=== PATIENT | female | born 1950 | race Caucasian/White ===

== ENCOUNTER → 2016-10-01 | Day surgery (SDC) | payer OTHER ==
[2016-09-17 10:01] VITALS: Ht 160 cm; Wt 75.0 kg
[~2016-10-01] VITALS: Ht 160 cm; Wt 75.0 kg
[~2016-10-01] MED LIST: 500ML BSS 0.3ML EPI 1:1000PF IRRIG ONE; ACETAMINOPHEN 325 MG TAB PO PRN; ALBUAER2 INH; ALPR-411 PO; AMVISC PLUS 0.8ML SYRINGE INT OCU ONE; ATROPINE SULFATE 0.1 MG/ML 5ML SYR IV PRN; BROM0.07 OPL; BSS FLUSH ONE; EpHEDrine SULFATE INJ 50 MG/ML AMP IV PRN; EpINEphrine INJ 1MG/ML AMP 1 MG/ML AMP ONE; FLVHFA220 INH; LACTATED RINGER'S 1000ML 500 ML IV SCH; LIDOCAINE 3.5% OPH GEL PER APPLICATION CHARGE ONE; LIDOCAINE HCL 1% MPF 2 ML VIAL ONE; MIDAZOLAM HCL 1 MG/ML 2ML VIAL ONE; MONT1TAB3 PO; MULT-506 PO; OCUCOAT 1 ML SOLN IO ONE; POLY335019 PO; POVIDONE-IODINE OP SOLN 30 ML BTL ONE; PRED1SUS3 OPL; PROPARACAINE 0.5% OP SOLN PER DROP CHARGE OPL SCH; TOBRAMYCIN/DEXAMETHASONE OPH OINT PER APPLN CHARGE ONE
[2016-10-01] MEDS: PHENYLEPHRINE HCL 2.5% OP SOLN PER DROP CHARGE OPL SCH ×2 (09:16→09:21)
[2016-10-01] MEDS: TROPICAMIDE 1% OP SOLN PER DROP CHARGE OPL SCH ×2 (09:17→09:22)
[2016-10-01] MEDS: CYCLOPENTOLATE HCL 1% OP SOLN PER DROP CHARGE OPL SCH ×2 (09:18→09:23)
[2016-10-01] MEDS: KETOROLAC 0.5% OP SOLN PER DROP CHARGE OPL SCH ×2 (09:19→09:24)
[2016-10-01] MEDS: GATIFLOXACIN OP SOLN PER DROP CHARGE OPL SCH ×2 (09:20→09:30)
--- NOTE | 2016-10-01 09:21 | History & Physical Bridge - [place] ---
H&P Re-Evaluation Bridge Note: I have examined the patient, reviewed the History & Physical and in the interval since the performance of the History & Physical I have noted the following changes of clinical significance: No changes noted
--- NOTE | 2016-10-01 10:06 | Discharge Instructions-SurgCtr ---
Discharge Instructions Visit Reason for Visit: Cataract Left Eye Discharge Discharge Diagnosis / Problem: cataract Discharge Goals Goal(s): Improve function Activity Recommendations Activity Limitations: per Instructions/Follow-up section Anesthesia . Post Anesthesia Instructions: If you have had General Anesthesia or IV Sedation: * Do not drive today. * Resume driving when surgeon permits. * Do not make important decisions or sign legal documents today. * Call surgeon for: 1. Temperature elevations greater than 101 degrees F. 2. Uncontrollable pain. 3. Excessive bleeding. 4. Persistent nausea and vomiting. 5. Medication intolerance (nausea, vomiting or rash). * For nausea and vomiting use only clear liquids such as: tea, soda, bouillon until nausea subsides, then gradually increase diet as tolerated. * If you have any concerns or questions, call your surgeon's office. If physician is unavailable and it is an emergency, call 911 or go to the nearest emergency room. . Instructions / Follow-Up Instructions / Follow-Up ACTIVITY RECOMMENDATIONS: * No strenuous lifting, jogging or running for 4 days * No swimming or yard work for 1 week. * Limited bending is permitted, such as putting on shoes. RETURN TO SCHOOL/WORK: No work until seen by physician in office. MEDICATIONS: Resume previous medications unless instructed otherwise by your surgeon. This includes eye drops for glaucoma. Zymaxid/Gatifloxacin (lin cap) - one drop every 2 hours until bedtime Nevanac/Ilevro/Prolensa/Ketorolac (solo cap) - one drop every 4 hours until bedtime Prednisolone (white/pink cap, SHAKE WELL) - one drop every 2 hours until bedtime Starting tomorrow - all 3 drops every 4 hours until seen in the office Optive drops - as needed for discomfort SPECIAL CARE INSTRUCTIONS: * Wear eyeshield when sleeping, for four nights. * You may wear your own glasses or sunglasses while awake. * You may read or watch TV * You may shower and wash your face, but be gentle around the eye and pat dry. * Blurry vision and mild irritation are normal. * Call office if pain is more severe or vision becomes dark at . FOLLOW UP VISIT: Follow-up with Dr Capps tomorrow. Diet Recommendations Home Diet: resume previous diet Procedures Procedures Performed: Left Cataract Phacoemulsification With Intraocular Lens Implant Pending Studies Studies pending at discharge: no Medical Emergencies . Who to Call and When: Medical Emergencies: If at any time you feel your situation is an emergency, please call 911 immediately. . Non-Emergent Contact Non-Emergency issues call your: Neon Molder . . "Provider Documentation" section prepared by Jann Capps.
--- NOTE | 2016-10-01 10:06 | [facility] Operative Report ---
Operative Report 1. PREOPERATIVE DIAGNOSIS: Cataract of the left eye. 2. POSTOPERATIVE DIAGNOSIS: Same. 3. PROCEDURE: Phacoemulsification with intraocular lens implantation of the left eye. SURGEON: Dr. Jann Capps. ANESTHESIA: Topical Lidocaine gel, 1% Non- Preserved intracameral Lidocaine, and monitored intravenous sedation. INDICATIONS FOR THE PROCEDURE: The patient is a 66 - year-old female with a history of cataract of the left eye causing significant visual impairment. The details of the proposed procedure were explained to the patient who asked appropriate questions and following discussion of all risks, benefits and alternatives agreed to have the procedure done. 4. OPERATION AND FINDINGS: DESCRIPTION OF PROCEDURE: After informed consent was obtained, the patient was brought to the Operating Room at the [facility]. The patient was placed in a supine position and then the left eye was prepped and draped in the usual sterile fashion for intraocular surgery. A drop of topical Lidocaine gel was placed in the operative eye. A wire lid speculum was then placed in the fornices. A corneal paracentesis was then created temporally. The Non-Preserved Lidocaine was then instilled into the anterior chamber. The anterior chamber was then pressurized with viscoelastic. A 2.0 mm clear corneal incision was then created temporally. A cystotome was inserted into the anterior chamber and used to create a tear in the anterior lens capsule. This capsular tear was then used to create a small flap and the flap was dragged in a counterclockwise direction in order to create a continuous curvilinear capsulorrhexis. Hydrodissection was accomplished with balanced salt solution. Phacoemulsification of the lens nucleus was then performed in a standard [id number] technique. The phaco time was 20 seconds with an average power of 10 %. The remaining cortical material was removed using irrigation aspiration. The capsular bag was then filled with viscoelastic. A Bausch & Lomb MI60L +16.0 diopters lens was then loaded into the injector and injected into the capsular bag. The remaining viscoelastic was removed with the irrigation aspiration handpiece. The wound was hydrated and then checked and found to be watertight. The intraocular pressure was checked and found to be adequate. The wire lid speculum was removed and the patient's face was cleaned and dried. TobraDex ointment was placed in the inferior fornix. The patient was discharged to the Recovery Room having tolerated the procedure well. There were no complications. The patient will be seen tomorrow in the office for follow-up. I attest to the content of the Intraoperative Record and any orders documented therein. Any exceptions are noted below.
[2016-10-01 10:10] VITALS: TEMP 36.8
--- NOTE | 2016-10-01 10:34 | Anesthesia Progress Nt - [facility] ---
Anesthesia Post Op Note Date & Time Oct 01, 2016 at 10:35 Vital Signs Pain Intensity: 0 Vital Signs Past 12 Hours Date Time Temp Pulse Resp B/P Pulse Ox O2 Delivery O2 Flow Rate FiO2 10/01/16 10:10 36.8 70 16 152/91 97 Room Air 10/01/16 09:04 36.4 69 16 177/100 96 Room Air Notes Mental Status: alert / awake / arousable, participated in evaluation Pt Amnestic to Procedure: Yes Nausea / Vomiting: adequately controlled Pain: adequately controlled Airway Patency, RR, SpO2: stable & adequate BP & HR: stable & adequate Hydration State: stable & adequate Anesthetic Complications: no major complications apparent
[2016-10-01 10:37] VITALS: BP 150/78; PULSE 80; O2SAT 98
== END | disposition home or self-care (01) ==
LOC: X.SURG 08:29
PROVIDERS: ATTEND Ophthalmology
DX: H26.9 Unspecified cataract (principal); H54.7 Unspecified visual loss; F41.9 Anxiety disorder, unspecified

== ENCOUNTER → 2016-10-29 | Day surgery (SDC) | payer OTHER ==
[2016-10-15 13:39] VITALS: Ht 160 cm; Wt 75.0 kg
[~2016-10-29] VITALS: Ht 160 cm; Wt 75.0 kg
[~2016-10-29] MED LIST changes: -PROPARACAINE 0.5% OP SOLN PER DROP CHARGE OPL SCH; +PROPARACAINE 0.5% OP SOLN PER DROP CHARGE OPR SCH
[2016-10-29] MEDS: PHENYLEPHRINE HCL 2.5% OP SOLN PER DROP CHARGE OPR SCH ×2 (07:00→07:05)
[2016-10-29] MEDS: TROPICAMIDE 1% OP SOLN PER DROP CHARGE OPR SCH ×2 (07:01→07:06)
[2016-10-29] MEDS: CYCLOPENTOLATE HCL 1% OP SOLN PER DROP CHARGE OPR SCH ×2 (07:02→07:07)
--- NOTE | 2016-10-29 07:02 | History & Physical Bridge - [place] ---
H&P Re-Evaluation Bridge Note: I have examined the patient, reviewed the History & Physical and in the interval since the performance of the History & Physical I have noted the following changes of clinical significance: Diagnosis: Right Cataract Procedure: Right Cataract Removal with Lens Implant No changes noted
[2016-10-29] MEDS: KETOROLAC 0.5% OP SOLN PER DROP CHARGE OPR SCH ×2 (07:03→07:08)
[2016-10-29] MEDS: GATIFLOXACIN OP SOLN PER DROP CHARGE OPR SCH ×2 (07:04→07:09)
--- NOTE | 2016-10-29 07:37 | Discharge Instructions-SurgCtr ---
Discharge Instructions Date of Service Oct 29, 2016. Visit Reason for Visit: Cataract Right Eye Discharge Discharge Diagnosis / Problem: cataract Discharge Goals Goal(s): Improve function Activity Recommendations Activity Limitations: per Instructions/Follow-up section Anesthesia . Post Anesthesia Instructions: If you have had General Anesthesia or IV Sedation: * Do not drive today. * Resume driving when surgeon permits. * Do not make important decisions or sign legal documents today. * Call surgeon for: 1. Temperature elevations greater than 101 degrees F. 2. Uncontrollable pain. 3. Excessive bleeding. 4. Persistent nausea and vomiting. 5. Medication intolerance (nausea, vomiting or rash). * For nausea and vomiting use only clear liquids such as: tea, soda, bouillon until nausea subsides, then gradually increase diet as tolerated. * If you have any concerns or questions, call your surgeon's office. If physician is unavailable and it is an emergency, call 911 or go to the nearest emergency room. . Instructions / Follow-Up Instructions / Follow-Up ACTIVITY RECOMMENDATIONS: * No strenuous lifting, jogging or running for 4 days * No swimming or yard work for 1 week. * Limited bending is permitted, such as putting on shoes. RETURN TO SCHOOL/WORK: No work until seen by physician in office. MEDICATIONS: Resume previous medications unless instructed otherwise by your surgeon. This includes eye drops for glaucoma. Zymaxid/Gatifloxacin (lin cap) - one drop every 2 hours until bedtime Nevanac/Ilevro/Prolensa/Ketorolac (solo cap) - one drop every 4 hours until bedtime Prednisolone (white/pink cap, SHAKE WELL) - one drop every 2 hours until bedtime Starting tomorrow - all 3 drops every 4 hours until seen in the office Optive drops - as needed for discomfort SPECIAL CARE INSTRUCTIONS: * Wear eyeshield when sleeping, for four nights. * You may wear your own glasses or sunglasses while awake. * You may read or watch TV * You may shower and wash your face, but be gentle around the eye and pat dry. * Blurry vision and mild irritation are normal. * Call office if pain is more severe or vision becomes dark at . FOLLOW UP VISIT: Follow-up with Dr Capps tomorrow. Diet Recommendations Home Diet: resume previous diet Procedures Procedures Performed: Right Cataract Phacoemulsification With Intraocular Lens Implant Pending Studies Studies pending at discharge: no Medical Emergencies . Who to Call and When: Medical Emergencies: If at any time you feel your situation is an emergency, please call 911 immediately. . Non-Emergent Contact Non-Emergency issues call your: Activities Officer . . "Provider Documentation" section prepared by Jann Capps.
--- NOTE | 2016-10-29 07:37 | [facility] Operative Report ---
Operative Report Date of Service Oct 29, 2016. Operative Report 1. PREOPERATIVE DIAGNOSIS: Cataract of the right eye. 2. POSTOPERATIVE DIAGNOSIS: Same. 3. PROCEDURE: Phacoemulsification with intraocular lens implantation of the right eye. SURGEON: Dr. Jann Capps. ANESTHESIA: Topical Lidocaine gel, 1% Non- Preserved intracameral Lidocaine, and monitored intravenous sedation. INDICATIONS FOR THE PROCEDURE: The patient is a 66 - year-old female with a history of cataract of the right eye causing significant visual impairment. The details of the proposed procedure were explained to the patient who asked appropriate questions and following discussion of all risks, benefits and alternatives agreed to have the procedure done. 4. OPERATION AND FINDINGS: DESCRIPTION OF PROCEDURE: After informed consent was obtained, the patient was brought to the Operating Room at the [facility]. The patient was placed in a supine position and then the right eye was prepped and draped in the usual sterile fashion for intraocular surgery. A drop of topical Lidocaine gel was placed in the operative eye. A wire lid speculum was then placed in the fornices. A corneal paracentesis was then created temporally. The Non-Preserved Lidocaine was then instilled into the anterior chamber. The anterior chamber was then pressurized with viscoelastic. A 2.0 mm clear corneal incision was then created temporally. A cystotome was inserted into the anterior chamber and used to create a tear in the anterior lens capsule. This capsular tear was then used to create a small flap and the flap was dragged in a counterclockwise direction in order to create a continuous curvilinear capsulorrhexis. Hydrodissection was accomplished with balanced salt solution. Phacoemulsification of the lens nucleus was then performed in a standard [id number] technique. The phaco time was 25 seconds with an average power of 8 %. The remaining cortical material was removed using irrigation aspiration. The capsular bag was then filled with viscoelastic. A Bausch & Lomb MI60L +18.5 diopters lens was then loaded into the injector and injected into the capsular bag. The remaining viscoelastic was removed with the irrigation aspiration handpiece. The wound was hydrated and then checked and found to be watertight. The intraocular pressure was checked and found to be adequate. The wire lid speculum was removed and the patient's face was cleaned and dried. TobraDex ointment was placed in the inferior fornix. The patient was discharged to the Recovery Room having tolerated the procedure well. There were no complications. The patient will be seen tomorrow in the office for follow-up. I attest to the content of the Intraoperative Record and any orders documented therein. Any exceptions are noted below.
[2016-10-29 07:38] VITALS: TEMP 37
--- NOTE | 2016-10-29 07:57 | Anesthesia Progress Nt - [facility] ---
Anesthesia Post Op Note Date & Time Oct 29, 2016 at 07:58 Vital Signs Pain Intensity: 0 Vital Signs Past 12 Hours Date Time Temp Pulse Resp B/P Pulse Ox O2 Delivery O2 Flow Rate FiO2 10/29/16 07:38 37.0 71 18 163/84 99 Room Air 10/29/16 06:55 36.4 85 16 173/98 99 Room Air Notes Mental Status: alert / awake / arousable, participated in evaluation Pt Amnestic to Procedure: Yes Nausea / Vomiting: adequately controlled Pain: adequately controlled Airway Patency, RR, SpO2: stable & adequate BP & HR: stable & adequate Hydration State: stable & adequate Anesthetic Complications: no major complications apparent
[2016-10-29 08:00] VITALS: BP 169/90; PULSE 71; O2SAT 98
== END | disposition home or self-care (01) ==
LOC: X.SURG 06:39
PROVIDERS: ATTEND Ophthalmology
DX: H26.9 Unspecified cataract (principal); H54.7 Unspecified visual loss; E78.5 Hyperlipidemia, unspecified; F41.8 Other specified anxiety disorders

== ENCOUNTER → 2017-05-24 | Outpatient (CLI) | payer OTHER ==
[~2017-05-24] MED LIST changes: -500ML BSS 0.3ML EPI 1:1000PF IRRIG ONE; -ACETAMINOPHEN 325 MG TAB PO PRN; -AMVISC PLUS 0.8ML SYRINGE INT OCU ONE; -ATROPINE SULFATE 0.1 MG/ML 5ML SYR IV PRN; -BSS FLUSH ONE; -EpHEDrine SULFATE INJ 50 MG/ML AMP IV PRN; -EpINEphrine INJ 1MG/ML AMP 1 MG/ML AMP ONE; -LACTATED RINGER'S 1000ML 500 ML IV SCH; -LIDOCAINE 3.5% OPH GEL PER APPLICATION CHARGE ONE; -LIDOCAINE HCL 1% MPF 2 ML VIAL ONE; -MIDAZOLAM HCL 1 MG/ML 2ML VIAL ONE; -OCUCOAT 1 ML SOLN IO ONE; -POVIDONE-IODINE OP SOLN 30 ML BTL ONE; -PROPARACAINE 0.5% OP SOLN PER DROP CHARGE OPR SCH; -TOBRAMYCIN/DEXAMETHASONE OPH OINT PER APPLN CHARGE ONE
--- NOTE | 2017-05-27 13:52 | MAMMOGRAPHY REPORT ---
BILATERAL DIGITAL SCREENING MAMMOGRAM WITH CAD: 05/26/2017 CLINICAL HISTORY: Routine screening. Patient has no complaints. TECHNIQUE: Current study was also evaluated with a Computer Aided Detection (CAD) system. Bilateral CC and MLO views were obtained. COMPARISON: Comparison is made to exams dated: 05/21/2016 mammogram - [facility], mammogram, 05/09/2013 mammogram, and 05/04/2012 mammogram - [facility]. BREAST COMPOSITION: There are scattered areas of fibroglandular density in both breasts. FINDINGS: No suspicious masses, calcifications, or areas of architectural distortion are noted in ei ther breast. There has been no significant interval change compared to prior exams. Scattered bilater al benign-appearing calcifications are not significantly changed. Bilateral asymmetries are stable. IMPRESSION: ACR BI-RADS CATEGORY 2: BENIGN There is no mammographic evidence of malignancy. A 1 year screening mammogram is recommended. The pa tient will receive written notification of the results. Approximately 10% of breast cancers are not detected with mammography. A negative mammographic report should not delay biopsy if a clinically suggestive mass is present. Lo Garrett M.D. ah/:05/26/2017 14:12:01 Lay Brother: Azucena GARG(Morro)(Elieser), [facility] letter sent: Normal 1/2 BI-RADS Code: ACR BI-RADS Category 2: Benign
== END | disposition home or self-care (01) ==
LOC: C.MAMM 11:10
PROVIDERS: ATTEND Obstetrics & Gynecology
DX: Z12.31 Encounter for screening mammogram for malignant neoplasm of breast (principal)

== ENCOUNTER 2017-08-23 09:48 | Emergency (ER) | payer OTHER ==
[~2017-08-23] VITALS: Ht 160 cm; Wt 75.8 kg
[2017-08-23 09:53] VITALS: TEMP 36.9; Ht 160 cm; Wt 75.8 kg
[2017-08-23] MEDS ORDERED: DULO-24 PO (10:26)
[2017-08-23] MEDS ORDERED: HYT/2 PO (10:26)
[2017-08-23] MEDS ORDERED: VNTHFA/IN INH (10:26)
[2017-08-23] MEDS ORDERED: BENA5TAB5 PO (10:26)
[2017-08-23] MEDS ORDERED: CARB0.5D28 OPB (10:26)
[2017-08-23] MEDS ORDERED: GFNSR600 PO (10:26)
[2017-08-23 10:44] LABS: BASO % 0.2 %; BASO ABS # 0.02 K/uL (0-0.2); EOS % 0.6 %; EOS ABS # 0.05 K/uL (0-0.5); HEMATOCRIT 36.9 % (37-47); IG# 0.02 K/uL (0.00-0.02); LYMPH ABS # 1.45 K/uL (1.2-3.4); MEAN CELL VOLUME 67.7 fL (80-100); MEAN CORPUSCULAR HGB CONC 32.5 g/dl (32-36); MEAN PLATELET VOLUME 9.3 fL (7.4-10.4); MONO % 7.1 %; MONO ABS # 0.57 K/uL (0.11-0.59); NEUT % 73.9 %; NEUT ABS # 5.95 K/uL (1.4-6.5); PLATELET COUNT 221 K/uL (130-400); RED CELL DISTRIBUTION WIDTH CV 15.9 % (11.5-14.5); RED CELL DISTRIBUTION WIDTH SD 38.3 fL (36.4-46.3); WHITE BLOOD COUNT 8.06 K/uL (4.8-10.8)
[2017-08-23] MEDS ORDERED: OPTIRAY 320 IV PRN (10:45)
[2017-08-23 11:01] LABS: ALBUMIN 4.1 gm/dl (3.4-5.0); ALT/SGPT 25 U/L (12-78); BLOOD UREA NITROGEN 9 mg/dl (7-18); CALCIUM 9.3 mg/dl (8.5-10.1); CARBON DIOXIDE 24 mmol/L (21-32); CREATININE 0.84 mg/dl (0.60-1.20); GLUCOSE 123 mg/dl (70-99); LIPASE 88 U/L (73-393); POTASSIUM 3.9 mmol/L (3.5-5.1); SODIUM 139 mmol/L (136-145)
[2017-08-23 11:06] LABS: ALKALINE PHOSPHATASE 71 U/L (45-117); AST/SGOT 18 U/L (15-37); TOTAL PROTEIN 7.5 gm/dl (6.4-8.2)
--- NOTE | 2017-08-23 11:47 | DIAGNOSTIC IMAGING REPORT ---
CT SCAN OF THE ABDOMEN AND PELVIS WITH IV CONTRAST CLINICAL HISTORY: Left-sided abdominal pain. COMPARISON STUDY: Abdominal CT dated 07/30/2016. TECHNIQUE: Following the IV administration of 92 cc of Optiray 320, CT scan of the abdomen and pelvis is performed from the lung bases to the proximal femora. Images are reviewed in the axial, sagittal, and coronal planes. IV contrast was administered without complication. A dose lowering technique was utilized adhering to the principles of ALARA. CT DOSE: 392.90 mGy.cm FINDINGS: Lung bases: The heart is normal in size and without pericardial effusion. Atelectasis versus scarring is seen at the left lung base. The lung bases are otherwise clear. There is a moderate hiatal hernia. Liver: The contrast-enhanced liver is enlarged, measuring 18.3 cm in length. The liver demonstrates diffusely diminished attenuation consistent with hepatic steatosis. There is no intrahepatic biliary ductal dilatation. The hepatic veins and portal veins are patent. Gallbladder: Unremarkable. Spleen: Normal in size and attenuation. Pancreas: Unremarkable. Adrenal glands: Unremarkable. Kidneys: The contrast enhanced kidneys are normal in size and without hydronephrosis. The kidneys enhance symmetrically. A 1.6 cm cyst is present in the lower pole of the right kidney. Abdominal vasculature: The abdominal aorta is normal in course and caliber noting mild atherosclerotic calcification. Bowel: There is moderate colonic diverticulosis. There is mild wall thickening with faint pericolic stranding and trace pericolic fluid in the left upper quadrant around the proximal descending colon, best seen on axial image #143. The appearance is consistent with mild acute diverticulitis. No evidence of abscess is seen. No bowel obstruction is identified. The appendix is well-visualized and normal. Peritoneum: There is no intraperitoneal free air or abdominal ascites. There is a small fat-containing umbilical hernia. Lymphadenopathy: None. Pelvic viscera: The bladder, uterus, and adnexa are normal as visualized. Skeletal structures: The skeletal structures are osteopenic. There is mild to moderate lumbosacral spondylosis. Minimal anterolisthesis is seen at L4-L5. No lytic or blastic lesions are seen. IMPRESSION: 1. Moderate colonic diverticulosis with evidence of mild acute diverticulitis involving the proximal descending colon. There is no intraperitoneal free air or evidence of abscess. 2. Hepatomegaly and hepatic steatosis. 3. Moderate hiatal hernia. 4. Additional findings as above. Electronically signed by: David Goodman M.D. 08/23/2017 11:45 AM Dictated Date/Time: 08/23/2017 11:40 AM
--- NOTE | 2017-08-23 11:54 | EMERGENCY ROOM VISIT NOTE ---
History First contact with patient: 10:09 Chief Complaint: ABDOMINAL PAIN Stated Complaint: PAIN IN LEFT SIDE Nursing Triage Summary: patient states,"I think I have diverticulitis." patient states her mother new maurisio this year and she has been sitting around, shes had cookies with nuts in them and has been a little stressed and depressed dealing with mothers and maurisio. patient c/o left abdominal pain and some diarrhea x2days. History of Present Illness The patient is a 67 year old female who presents to the Emergency Room with complaints of left-sided abdominal pain. The patient reports that she has had abdominal pain for the past 2 days. She states that the pain is located in the left mid abdomen and rates the discomfort a 5/10. She denies any associated nausea or vomiting. She denies any fevers. The patient does report a history of diverticulitis, but states this has typically been right-sided. She reports that she has seen a surgical appliances salesperson in the past, and they recommended that if she had these symptoms again she should come to the emergency department for a CT scan to confirm diverticulitis. The patient states that she has had increased stress recently due to the recent of her mother. She states that she has been inactive and has had some nuts to eat, all of which are things that trigger her diverticulitis. She rates her discomfort a 5/10. She has had some diarrhea, but states that this has been ongoing for the past 2 weeks due to stress. Review of Systems A complete 10 point review of systems was reviewed with the patient with pertinent positives and negatives as per history of present illness. All else were negative. Past Medical/Surgical History Medical Problems: (1) Kidney stone Family History FH: gallbladder disease FH: heart disease FH: lung disease Social History Smoking Status: Never Smoker Marital Status: Housing Status: lives alone Occupation Status: unemployed Current/Historical Medications Scheduled Benazepril Hcl (Benazepril Hcl), 1 TAB PO DAILY Ciprofloxacin Hcl (Cipro), 500 MG PO BID Duloxetine Hcl (Cymbalta), 20 MG PO DAILY Fluticasone Propionate (Flovent Hfa), 2 PUFF INH BID Guaifenesin Ext Rel (Mucinex Ext Rel), 1,200 MG PO QAM Metronidazole (Flagyl), 500 MG PO TID Multivitamin (Multivitamin), 1 TAB PO QAM Terazosin Hcl (Hytrin), 1 CAP PO BID Scheduled PRN Albuterol Hfa (Ventolin Hfa), 2 PUFFS INH QID PRN for Shortness of Breath Alprazolam (Xanax), 0.5 TAB PO QPM PRN for Anxiety Carboxymethylcellulose Sodium (Refresh Tears), 1 DROP OPB DAILY PRN for DRYNESS Montelukast Sodium (Singulair), 10 MG PO QAM PRN for Seasonal Allergies Physical Exam Vital Signs Date Time Temp Pulse Resp B/P (MAP) Pulse Ox O2 Delivery O2 Flow Rate FiO2 08/23/17 12:06 76 20 156/86 98 Room Air 08/23/17 10:57 71 20 140/84 96 Room Air 08/23/17 09:53 36.9 81 18 148/82 96 Room Air Physical Exam VITALS: Vitals are noted on the nurse's note and reviewed by myself. Vital signs stable. GENERAL: This is a 67-year-old female, in no acute distress, nondiaphoretic, well-developed well-nourished. HEART: Regular rate and rhythm without murmurs gallops or rubs. LUNGS: Clear to auscultation bilaterally without wheezes, rales or rhonchi. ABDOMEN: Positive bowel sounds x 4. Soft, mild tenderness in the left mid abdomen. No guarding or rebound tenderness. NEURO: Patient was alert and oriented to person place and time. Medical Decision & Procedures ER Provider Diagnostic Interpretation: CT SCAN OF THE ABDOMEN AND PELVIS WITH IV CONTRAST IMPRESSION: 1. Moderate colonic diverticulosis with evidence of mild acute diverticulitis involving the proximal descending colon. There is no intraperitoneal free air or evidence of abscess. 2. Hepatomegaly and hepatic steatosis. 3. Moderate hiatal hernia. 4. Additional findings as above. Laboratory Results 08/23/17 10:30 Red Blood Count 5.45, Mean Corpuscular Volume 67.7, Mean Corpuscular Hemoglobin 22.0, Mean Corpuscular Hemoglobin Concent 32.5, Mean Platelet Volume 9.3, Neutrophils (%) (Auto) 73.9, Lymphocytes (%) (Auto) 18.0, Monocytes (%) (Auto) 7.1, Eosinophils (%) (Auto) 0.6, Basophils (%) (Auto) 0.2, Neutrophils # (Auto) 5.95, Lymphocytes # (Auto) 1.45, Monocytes # (Auto) 0.57, Eosinophils # (Auto) 0.05, Basophils # (Auto) 0.02 08/23/17 10:30 Test 08/23/17 10:30 08/23/17 11:24 White Blood Count 8.06 K/uL (4.8-10.8) Red Blood Count 5.45 M/uL (4.2-5.4) Hemoglobin 12.0 g/dL (12.0-16.0) Hematocrit 36.9 % (37-47) Mean Corpuscular Volume 67.7 fL (80-100) Mean Corpuscular Hemoglobin 22.0 pg (25-34) Mean Corpuscular Hemoglobin Concent 32.5 g/dl (32-36) Platelet Count 221 K/uL (130-400) Mean Platelet Volume 9.3 fL (7.4-10.4) Neutrophils (%) (Auto) 73.9 % Lymphocytes (%) (Auto) 18.0 % Monocytes (%) (Auto) 7.1 % Eosinophils (%) (Auto) 0.6 % Basophils (%) (Auto) 0.2 % Neutrophils # (Auto) 5.95 K/uL (1.4-6.5) Lymphocytes # (Auto) 1.45 K/uL (1.2-3.4) Monocytes # (Auto) 0.57 K/uL (0.11-0.59) Eosinophils # (Auto) 0.05 K/uL (0-0.5) Basophils # (Auto) 0.02 K/uL (0-0.2) RDW Standard Deviation 38.3 fL (36.4-46.3) RDW Coefficient of Variation 15.9 % (11.5-14.5) Immature Granulocyte % (Auto) 0.2 % Immature Granulocyte # (Auto) 0.02 K/uL (0.00-0.02) Polychromasia 1+ Microcytosis PRESENT Ovalocytes 1+ Anion Gap 8.0 mmol/L (3-11) Est Creatinine Clear Calc Drug Dose 62.5 ml/min Estimated GFR () 82.8 Estimated GFR (Non- 71.4 BUN/Creatinine Ratio 11.3 (10-20) Calcium Level 9.3 mg/dl (8.5-10.1) Total Bilirubin 0.8 mg/dl (0.2-1) Aspartate Amino Transf (AST/SGOT) 18 U/L (15-37) Alanine Aminotransferase (ALT/SGPT) 25 U/L (12-78) Alkaline Phosphatase 71 U/L (45-117) Troponin I < 0.015 ng/ml (0-0.045) Total Protein 7.5 gm/dl (6.4-8.2) Albumin 4.1 gm/dl (3.4-5.0) Globulin 3.4 gm/dl (2.5-4.0) Albumin/Globulin Ratio 1.2 (0.9-2) Lipase 88 U/L (73-393) Urine Color YELLOW Urine Appearance CLEAR (CLEAR) Urine pH 7.5 (4.5-7.5) Urine Specific [place] 1.012 (1.000-1.030) Urine Protein NEG (NEG) Urine Glucose (UA) NEG (NEG) Urine Ketones NEG (NEG) Urine Occult Blood NEG (NEG) Urine Nitrite NEG (NEG) Urine Bilirubin NEG (NEG) Urine Urobilinogen NEG (NEG) Urine Leukocyte Esterase NEG (NEG) ED Course The patient was evaluated as above. Labs were drawn and IV access was obtained. CT abdomen/pelvis was performed and read by radiology as above. Patient was reevaluated and findings were discussed. Discharge instructions were reviewed with the patient. The patient verbalized understanding of my assessment and treatment plan and was discharged home in good condition. Medical Decision Differential diagnosis includes diverticulitis, colitis, bowel obstruction, urinary tract infection, pyelonephritis, pancreatitis, gastritis, cardiac disease, among others. The patient is a 67-year-old female who presents today complaining of left- sided abdominal pain. Labs revealed no leukocytosis or concerning electrolyte abnormalities. Urinalysis was not suggestive of infection. CT shows evidence of mild acute diverticulitis. Patient will be placed on ciprofloxacin and Flagyl. She will follow-up with her primary care provider and surgical appliances salesperson. She was instructed to return here for any worsening or new/ concerning symptoms. She verbalized understanding of my assessment and treatment plan was discharged home in good condition. The patient was independently evaluated by Dr. Jordan, ED attending physician, who agreed with my assessment and treatment plan. Medication Reconcilliation Current Medication List: was personally reviewed by me Blood Pressure Screening Patient's blood pressure: Normal blood pressure Impression Primary Impression: Acute diverticulitis Departure Information Dispostion Home / Self-Care Condition GOOD Prescriptions Metronidazole (Flagyl) 500 Mg Tab 500 MG PO TID for 10 Days, #30 TAB Prov: Ingris Marshall PA-C 08/23/17 Ciprofloxacin Hcl (CIPRO) 500 Mg Tab 500 MG PO BID for 10 Days, #20 TAB Prov: Ingris Marshall PA-C 08/23/17 Referrals Corinne Tavarez M.D. (PCP) Patient Instructions My [facility] Additional Instructions You were prescribed Ciprofloxacin to be taken as prescribed. This is an antibiotic. All antibiotics have the potential to cause diarrhea. Stop this medication and contact a medical provider if you were to develop any significant adverse side effects including: wheezing, shortness of breath, passing out, vomiting, or a diffuse rash. Always take antibiotics as directed and COMPLETE the ENTIRE course regardless of the improvement of your symptoms. You were prescribed Flagyl to be taken as prescribed. This is an antibiotic. All antibiotics have the potential to cause diarrhea. Stop this medication and contact a medical provider if you were to develop any significant adverse side effects including: wheezing, shortness of breath, passing out, vomiting, or a diffuse rash. Always take antibiotics as directed and COMPLETE the ENTIRE course regardless of the improvement of your symptoms. Be sure not to drink any alcohol with this medication, as it will make you very ill. For pain control, you can use the following [id number] medicines (if >12 yo): - Regular strength (325mg/tab) Tylenol (acetaminophen) 2 tabs every 4-6 hours as needed. Do not exceed 12 tablets in a 24 hour period. Avoid taking more than 4 grams (4000 mg) of Tylenol per day. This includes any other sources of acetaminophen you may take on a regular basis. - Regular strength (200 mg/tab) Advil (ibuprofen) 1-2 tabs every 4-6 hours as needed. Do not exceed a dose of 3200 mg per day. Consider keeping a clear diet for the next 2-3 days. Follow-up with your primary care provider or surgical appliances salesperson for a recheck. Return here for worsening pain, fevers, vomiting or any other new/concerning symptoms.
[2017-08-23 12:06] VITALS: BP 156/86; PULSE 76; O2SAT 98
--- NOTE | 2017-08-23 12:10 | EMERGENCY ROOM VISIT NOTE ---
ED Visit Note First contact with patient: 10:09 This Patient was discussed with the physician assistant professor of radiology, Ingris Marshall PA-C. The pertinent historical and physical exam findings were confirmed. I agree with the studies ordered and with the interpretations of these studies. I agree with the disposition and care plan.
[2017-08-23] MEDS ORDERED: CIPR-255 PO (12:14)
[2017-08-23] MEDS ORDERED: METR-163 PO (12:14)
== END 2017-08-23 12:26 | disposition home or self-care (01) ==
LOC: C.EDB 09:50 → C.EDC 12:26
DX: K57.92 Diverticulitis of intestine, part unspecified, without perforation or abscess without bleeding (principal); Z87.442 Personal history of urinary calculi

== ENCOUNTER 2020-06-13 07:02 | Observation (INO) ==
--- NOTE | 2020-05-22 11:20 | PAT Medication Instructions ---
Medication Instructions Date of Service May 22, 2020 Home Medications Medication Instructions Recorded azelastine 137 mcg (0.1 %) nasal 2 sprays INTNAS BID #30 ml 05/11/19 spray aerosol albuterol sulfate 90 mcg/actuation 2 puffs INHALATION Q4H PRN #18 gm 10/05/19 aerosol inhaler budesonide-formoterol HFA 80 2 puffs INH BID #1 inhaler 10/05/19 mcg-4.5 mcg/actuation aerosol inhaler azelastine 137 mcg (0.1 %) nasal spray aerosol 2 sprays INTNAS BID losartan 50 mg tablet 50 mg PO HS albuterol sulfate 90 mcg/actuation aerosol inhaler 2 puffs INHALATION Q4H PRN budesonide-formoterol HFA 80 mcg-4.5 mcg/actuation aerosol inhaler 2 puffs INH BID alprazolam 0.5 mg tablet 0.5 mg PO HS cholecalciferol (vitamin D3) 25 mcg (1,000 unit) capsule 25 mcg PO DAILY multivitamin 1 cap PO DAILY acetaminophen [Tylenol] 325 mg PO QID PRN montelukast 10 mg PO QAM omeprazole 20 mg PO QAM DO NOT take the morning of surgery cholecalciferol (vitamin D3) 25 mcg (1,000 unit) capsule 25 mcg PO DAILY multivitamin 1 cap PO DAILY montelukast 10 mg PO QAM Take morning of surgery With a small sip of water, OTHERWISE NOTHING TO EAT OR DRINK AFTER MIDNIGHT: azelastine 137 mcg (0.1 %) nasal spray aerosol 2 sprays INTNAS BID albuterol sulfate 90 mcg/actuation aerosol inhaler 2 puffs INHALATION Q4H PRN (use if needed; please bring with you to hospital day of surgery if possible) budesonide-formoterol HFA 80 mcg-4.5 mcg/actuation aerosol inhaler 2 puffs INH BID acetaminophen [Tylenol] 325 mg PO QID PRN (okay to take up to 4 hours prior to surgery if needed) omeprazole 20 mg PO QAM Take evening before surgery azelastine 137 mcg (0.1 %) nasal spray aerosol 2 sprays INTNAS BID losartan 50 mg tablet 50 mg PO HS albuterol sulfate 90 mcg/actuation aerosol inhaler 2 puffs INHALATION Q4H PRN (if needed) budesonide-formoterol HFA 80 mcg-4.5 mcg/actuation aerosol inhaler 2 puffs INH BID alprazolam 0.5 mg tablet 0.5 mg PO HS acetaminophen [Tylenol] 325 mg PO QID PRN (if needed) Other Notes If you have any questions please call us at [phone] or [phone] or [phone] or [phone]
--- NOTE | 2020-05-23 09:31 | Anesthesiology Consultation ---
Date of Service May 23, 2020 Assessment & Plan (1) Encounter for pre-operative examination: Chart Review Chart Review: Acceptable Risk for Surgery (pending preop Covid testing results from 06/10) and Patient seen in Pre Admission Testing Per PAT appt on 05/23/20, patient resides in [facility]. No travel. Uses PPE. No known Covid positive contacts or Covid related symptoms. Preop Covid testing scheduled 06/10/20. Educated on importance of self quarantining, social distancing and wearing mask in public both for the patient and household contacts. Teaching & Discussion Pre-Anesthesia Teaching/Discussion Notes: Instructed NPO after midnight before surgery,except medications with 15 cc of water. Medication instructions provided according to the PAT guidelines. History Surgery Operation Date: 06/13/20 08:35 Proposed Procedures p Laparoscipic Hiatal Hernia Repair with Fundoplication, - Kulwinder Rogel DO s Intraoperative Esophagogastroduodenoscopy - Kulwinder Rogel DO Height/Weight Height: 5 ft 3 in Weight: 75.7 kg Allergies Allergy/AdvReac Type Severity Reaction Status Date / Time ondansetron Allergy Intermediate MADE LIPS Verified 05/21/20 12:59 SWELL tomato Allergy Mild STOMACH Verified 05/21/20 12:59 ACHE broccoli Allergy Unknown STOMACH Verified 05/21/20 12:59 ACHE plum Allergy Unknown STOMACH Verified 05/21/20 12:59 ACHE metformin AdvReac Severe Headaches Verified 05/23/20 09:36 Rlnbjlm-Thq-Ibf Reductase AdvReac Intermediate Joint Verified 05/23/20 09:36 Inhibitor pain/weakness Pea Allergy Mild STOMACH Uncoded 05/21/20 12:59 ACHE Flomax CAPS AdvReac swelling Uncoded 05/21/20 12:59 Terazosin HCl TABS AdvReac swelling Uncoded 05/21/20 12:59 Medications Home Medications Medication Instructions Recorded Confirmed Last Taken azelastine 137 mcg (0.1 %) nasal 2 sprays INTNAS BID #30 ml 05/11/19 05/21/20 Unknown spray aerosol losartan 50 mg tablet 50 mg PO HS tab 06/06/19 05/21/20 Unknown albuterol sulfate 90 mcg/actuation 2 puffs INHALATION Q4H PRN #18 gm 10/05/19 05/21/20 Unknown aerosol inhaler budesonide-formoterol HFA 80 2 puffs INH BID #1 inhaler 10/05/19 05/21/20 Unknown mcg-4.5 mcg/actuation aerosol inhaler alprazolam 0.5 mg tablet 0.5 mg PO HS tab 04/10/20 05/21/20 Unknown cholecalciferol (vitamin D3) 25 25 mcg PO DAILY 04/10/20 05/21/20 Unknown mcg (1,000 unit) capsule multivitamin 1 cap PO DAILY 04/10/20 05/21/20 Unknown acetaminophen [Tylenol] 325 mg PO QID PRN 05/21/20 05/21/20 Unknown montelukast 10 mg PO QAM 05/21/20 05/21/20 Unknown omeprazole 20 mg PO QAM 05/21/20 05/21/20 Unknown Past Medical History Medical History Allergic rhinitis Stable - takes Singulair Anxiety Stable Asthma Stable and controlled Esophageal reflux Aggrevated Hiatal hernia Hyperlipemia Hypertension Kidney stone hx Exercise / Class Metabolic Activity II 4-5 Yardwork/Stairs/Walk up hill (one flight of stairs - no chest pain or SOB ) Past Family History Family History Father Colorectal cancer Coronary heart disease Heart disease Hypertension Mother Hypertension Aunt Cancer cervical Past Surgical History Surgical History History of tonsillectomy Hx of colonoscopy S/P carpal tunnel release Past Anesthesia History No Hx of Anesthesia Complications (with exception to one episode- slow to wake ) and No Family Hx of Anesthesia Complications (with exception to PONV ) History of PONV No Hx of Motion Sickness and History of PONV Social History Smoking Status: Never smoker Do You Dip or Chew Tobacco: No Hx Alcohol Use: Yes alcohol intake frequency: holidays/special occasions only Hx Substance Use: No substance use type: does not use Review of Systems Mild chronic cough - stable- feels secondary to allergies Occ snoring- unknown apnea- no history of sleep study Patient denies chest pain, shortness of breath, dyspnea on exertion, wheezing, palpitations. No hx of seizures, stroke, [place]. No hx of blood clots or blood transfusions Physical Exam Vital Signs VITALS BP 151/75 P 72 TEMP 98.2 SP02 96% RESP 16 Constitutional no acute distress ENMT Mouth: no TMJ clicking Thyromental Distance: < 3.5 Finger Breadths (3.0) Mallampati Class: II Capped upper right back tooth Neck neck extension not limited Respiratory normal respiratory effort; no respiratory distress Auscultation: lungs clear to auscultation bilaterally; no wheezes Cardiovascular Rate/Rhythm: regular rate and regular rhythm Heart Sounds: no murmur Vessels: no carotid bruit Musculoskeletal Spine: no pain with cervical ROM Neurologic moves all extremities Psychiatric Orientation: alert Testing Laboratory Results 05/23/20 09:55 05/23/20 09:55 Electrocardiogram Date: 05/23/20 Findings: + NSR @ (62) Chest X-Ray Date: 08/24/19 Findings: + NAD Moderate hiatus hernia, unchanged.
[2020-05-23 10:38] LABS: Basophils # (auto) 0.04 K/uL (0-0.2); Basophils % (auto) 0.7 %; Eosinophils # (auto) 0.15 K/uL (0-0.5); Eosinophils % (auto) 2.6 %; Hematocrit (blood only) 38.3 % (37-47); Hemoglobin 12.1 g/dL (12.0-16.0); Lymphocytes # (auto) 1.66 K/uL (1.2-3.4); Mean Corpuscular Hemoglobin 21.3 pg (25-34); Mean Corpuscular Hgb Conc 31.6 g/dL (32-36); Mean Corpuscular Volume 67.4 fL (80-100); Mean Platelet Volume 9.8 fL (7.4-10.4); Monocytes % (auto) 12.2 %; Neutrophils # (auto) 3.17 K/uL (1.4-6.5); Neutrophils % (auto) 55.5 %; Platelet Count 256 K/uL (130-400); RDW Coefficient of Variation 15.7 % (11.5-14.5); RDW Standard Deviation 38.1 fL (36.4-46.3); Red Blood Count 5.68 M/uL (4.2-5.4); White Blood Count 5.72 K/uL (4.8-10.8)
[2020-05-23 10:47] LABS: Albumin Level 3.8 gm/dl (3.4-5.0); BUN Creatinine Ratio 15.5 (10-20); Bilirubin Direct 0.1 mg/dl (0-0.2); Calcium 9.5 mg/dl (8.5-10.1); Creatinine Clr Calc Pharmacy 61.5 ml/min; Est GFR (African American) 82.8; Est GFR (Non-African American) 71.4; Potassium 4.4 mmol/L (3.5-5.1)
[2020-05-23 10:49] LABS: Bilirubin,Total 0.6 mg/dl (0.2-1); Total Protein 7.5 gm/dl (6.4-8.2)
[2020-05-23 10:58] LABS: Microcytosis Present; Ovalocytes 2+
--- NOTE | 2020-05-24 05:54 | Electrocardiogram Report ---
Test Reason : Blood Pressure : / mmHG Vent. Rate : 062 BPM Atrial Rate : 062 BPM P-R Int : 140 ms QRS Dur : 082 ms QT Int : 392 ms P-R-T Axes : 038 062 030 degrees QTc Int : 397 ms Normal sinus rhythm Normal ECG When compared with ECG of 23-AUG-2017 10:32, No significant change was found Confirmed by Wes Weiner ([id number]) on 05/24/2020 5:54:13 AM Referred By: Kulwinder Rogel Confirmed By:Wes Weiner
--- NOTE | 2020-06-13 06:57 | History & Physical Report ---
Date of Service June 13, 2020 Assessment & Plan (1) Hiatal hernia: We have had multiple discussion regarding her options. We plan to proceed today with a laparoscopic hiatal hernia repair as well as 360 degree fundoplication. We discussed the risks associated with this which would include bleeding, infection, injury to another organ such as spleen stomach diaphragm lungs etc., Dysphagia, DVT, PE, ID, CVA etc. Following our discussion I answered all of her questions. We will proceed today with a laparoscopic hiatal hernia repair and 360 degree fundoplication (2) Esophageal reflux: (3) Laryngopharyngeal reflux (LPR): History of Present Illness Primary Care Provider: Corinne Tavarez MD Jade is here today for repair of her hiatal hernia as well as an antireflux procedure. She has had a longstanding history of acid reflux which is now failing conservative management. She also has a known hiatal hernia. Manometry work-up was negative for esophageal dysmotility. no clinical changes since her last office visit.... Allergies Allergy/AdvReac Type Severity Reaction Status Date / Time ondansetron Allergy Intermediate MADE LIPS Verified 06/13/20 07:33 SWELL tomato Allergy Mild STOMACH Verified 06/13/20 07:33 ACHE broccoli Allergy Unknown STOMACH Verified 06/13/20 07:33 ACHE plum Allergy Unknown STOMACH Verified 06/13/20 07:33 ACHE meperidine Allergy Unknown Verified 06/13/20 07:33 metformin AdvReac Severe Headaches Verified 06/13/20 07:33 Ukrvdgk-Fxv-Hlp Reductase AdvReac Intermediate Joint Verified 06/13/20 07:33 Inhibitor pain/weakness tamsulosin AdvReac SWELLING Verified 06/13/20 07:33 terazosin AdvReac SWELLING Verified 06/13/20 07:33 Pea Allergy Mild STOMACH Uncoded 06/13/20 07:33 ACHE Home Medications Home Medications Medication Instructions Recorded Confirmed Type azelastine 137 mcg (0.1 %) nasal 2 sprays INTNAS BID #30 ml 05/11/19 06/13/20 Rx spray aerosol losartan 50 mg tablet 50 mg PO HS tab 06/06/19 06/13/20 History albuterol sulfate 90 mcg/actuation 2 puffs INHALATION Q4H PRN #18 gm 10/05/19 06/13/20 Rx aerosol inhaler budesonide-formoterol HFA 80 2 puffs INH BID #1 inhaler 10/05/19 06/13/20 Rx mcg-4.5 mcg/actuation aerosol inhaler alprazolam 0.5 mg tablet 0.5 mg PO HS tab 04/10/20 06/13/20 History cholecalciferol (vitamin D3) 25 25 mcg PO DAILY 04/10/20 06/13/20 History mcg (1,000 unit) capsule multivitamin 1 cap PO DAILY 04/10/20 06/13/20 History acetaminophen [Tylenol] 325 mg PO QID PRN 05/21/20 06/13/20 History montelukast 10 mg PO QAM 05/21/20 06/13/20 History omeprazole 20 mg PO QAM 05/21/20 06/13/20 History Past Med/Surg History Medical History Allergic rhinitis Stable - takes Singulair Anxiety Stable Asthma Stable and controlled Esophageal reflux Aggrevated Hiatal hernia Hyperlipemia Hypertension Kidney stone hx Surgical History History of tonsillectomy Hx of colonoscopy S/P carpal tunnel release Family History Father Colorectal cancer Coronary heart disease Heart disease Hypertension Mother Hypertension Aunt Cancer cervical Social History Smoking Status: Never smoker Second Hand Exposure: No; Do You Dip or Chew Tobacco: No; Tobacco Cessation Education Requested by Patient: No Hx Alcohol Use: Yes Hx Substance Use: No Preferred Language: Greek Communication Ability: Effective Surgery Scheduler Required: No Beliefs That Will Affect Care: None marital status: Current Living Situation: Alone current occupational status: retired How many Children do You have: 1 Other Information That Helps Us Care for You: No Feels Safe at Home: Yes Safety Concerns: Feels Safe At This Time Assistive Devices: Glasses Review of Systems All systems reviewed & are unremarkable except as noted in HPI & below Physical Exam Constitutional: WD/WN, vitals as above no acute distress and not ill appearing Eyes: PERRL, conjunctivae normal, anicteric sclerae EOM intact bilaterally ENMT: external ear and nose normal, oropharynx normal Ears: no hearing impairment Neck: trachea midline, no thyromegaly Respiratory: normal respiratory effort; no respiratory distress and does not use accessory muscles Cardiovascular: Rate/Rhythm: regular rate and regular rhythm Gastrointestinal (Abdomen): normal bowel sounds, soft, nontender, no hepatosplenomegaly Skin: no rashes, warm and dry Psychiatric: Orientation: alert, oriented x 3 and cooperative
[~2020-06-13 07:02] MED LIST changes: -ALBUAER2 INH; -ALPR-411 PO; -BROM0.07 OPL; -FLVHFA220 INH; +LR 15ML/HR IV SCH; -MONT1TAB3 PO; -MULT-506 PO; -POLY335019 PO; -PRED1SUS3 OPL; +ceFAZolin 2000MG 2,000 MG/15 ML SYR IV SCH
[2020-06-13] MEDS ORDERED: fentaNYL citrate 100 MCG/2 ML VIAL ONE (07:56)
[2020-06-13] MEDS ORDERED: MIDAZOLAM HCL 1 MG/ML 2ML VIAL ONE (07:57)
[2020-06-13] MEDS ORDERED: BUPIVACAINE/EPINEPHRINE 0.25% 1:200,000 30 ML VIAL ONE (08:19)
[2020-06-13] MEDS ORDERED: ACETAMINOPHEN 1000 MG/100 ML IV IV ONE (08:48)
[2020-06-13] MEDS ORDERED: ePHEDrine sulfate 50 MG/ML SYR ONE (09:14)
[2020-06-13] MEDS ORDERED: PROMETHAZINE HCL INJ 25 MG/ML 1 ML VIAL ONE (09:14)
[2020-06-13] MEDS ORDERED: PROPOFOL IV EMULSION 10 MG/ML 20 ML VIAL IV ONE ×2 (09:14→10:09)
[2020-06-13] MEDS ORDERED: NEOSTIGMINE METHYLSULFATE 5 MG/5 ML SYR ONE (09:14)
[2020-06-13] MEDS ORDERED: GLYCOPYRROLATE 0.2 MG/ML VIAL ONE (09:14)
[2020-06-13] MEDS ORDERED: DEXAMETHASONE SOD INJ 4 MG/ML VIAL ONE (09:14)
[2020-06-13] MEDS ORDERED: ROCURONIUM BROMIDE 10 MG/ML 5 ML VIAL IV ONE (09:14)
[2020-06-13] MEDS ORDERED: LIDOCAINE HCL 2% 2 ML VIAL/AMP(20MG/ML) INFIL ONE (09:16)
[2020-06-13] MEDS ORDERED: LARYING-O-JET KIT (LTA) ONE (09:16)
[2020-06-13] MEDS ORDERED: PROMETHAZINE HCL 12.5 MG in SODIUM CHLORIDE 0.9% 50 ML IV PRN (09:18)
[2020-06-13] MEDS ORDERED: ATROPINE SULFATE 0.1 MG/ML 10ML SYR IV PRN (09:18)
[2020-06-13] MEDS ORDERED: ePHEDrine sulfate 50 MG/ML AMP IV PRN (09:18)
[2020-06-13] MEDS ORDERED: HYDROmorphone INJ 2 MG/ML SYR/VIAL ONE (09:56)
--- NOTE | 2020-06-13 10:53 | Operative Report ---
PG Post Operative Report Pre & Post Diagnosis Operation Date: 06/13/20 08:30 Pre-Op Diagnosis: Hiatal Hernia; Esophageal reflux; Laryngopharyngeal reflux Post-Op Diagnosis: Hiatal Hernia; Esophageal reflux; Laryngopharyngeal reflux I identified the patient and participated in the time-out.: Yes Procedure Operation Date: 06/13/20 08:30 Actual Procedures p Laparoscopic Hiatal Hernia Repair with 360 Degree Fundoplication, Posterior Gastropexy(Not Applicable) - Kulwinder Rogel DO Surgeon Kulwinder Rogel DO Passenger Flagman dorita Adkins Estimated Blood Loss 5 Findings Consistent with Post-Op Diagnosis Specimens none Description of Procedure After informed consent was obtained the patient was taken to the operating room and placed in supine position. After successful intubation an NG tube was placed and the abdomen was sterilely prepped and draped in usual fashion. I began with a supraumbilical incision with an 11 blade scalpel. This was carried down through the soft tissue using cautery. The anterior rectus fascia was opened using cautery and two #0 Vicryl stay sutures were placed. Peritoneum was elevated with hemostats and incised under direct vision using a Metzenbaum scissor. A finger sweep was performed and a 12 mm Mata trocar was placed. The abdomen was insufflated to 18 mmHg. A laparoscope was inserted and the abdomen was examined in 360 degrees. Initially no gross abnormalities were identified. A subxiphoid 12 mm port, a left upper quadrant 5 mm port and 2 right upper quadrant 5 mm ports were placed under direct vision. We used a liver retractor attached to the table throughout the case to elevate the left lobe of the liver. After elevating the left lobe of the liver there was an o bvious probably 6 cm hiatal hernia with gastric incarceration. The patient was placed in a steep reverse Trendelenburg position. We began by reducing the stomach. There did not appear to be any ischemia or injury. I began by using traction countertraction and harmonic scalpel to come up along the right shelley of the diaphragm. We took down hernia sac starting along the right shelley of the diaphragm coming anteriorly and down over onto the left crura of the diaphragm. Eventually we were able to remove the hernia sac in 360 degrees. This allowed the stomach to remain in the abdomen without tension or traction on it. Next we had anesthesia place a 50 Hungarian bougie which they did without difficulty. I was able to gently lift up on the GE junction which was bolstered by the bougie and place an 0 Surgidac stitch from the left crura of the diaphragm to the right shelley of the diaphragm closing the defect posteriorly. This was done with an Endo Stitch device. Once this was accomplished I then closed the remainder of the defect anteriorly again using the Endo Stitch with 0-Surgidac. Once we had the defect closed I then created a posterior gastric window just superior to the left gastric artery. Next we took down the 4 superior most short gastric vessels again using the harmonic scalpel. Once we had the short gastric vessels divided I placed a reticulating grasper from the medial side to the lateral side through the retrogastric window. It was reticulated up and out by the angle of His. The fundus of the stomach was grasped and the grasper pulled through the window and unreticulated. Shoeshine test was easily accomplished and there was no tension on the stomach. Next I performed a posterior gastropexy by using 0 Surgidac and securing the fundus of the stomach to the right shelley of the diaphragm. Next I completed the 360 degree wrap again using 0 Surgidac by grasping body of the stomach laterally a small portion of the anterior esophageal fat pad anteriorly and completing it by grasping the fundus which was now on the medial side. 0 Surgidac was used for all of these sutures. Approximately 4 stitches were used to create this 3 to 3-1/2 cm length wrap. The wrap laid nice and tension-free. The bougie was easily removed. There was adequate hemostasis. The wrap did not appear to be too loose or too tight. A final look around the abdomen showed no other abnormalities. The liver retractor graspers and all the trochars were removed. The abdomen was desufflated. The fascia of the camera port was closed using 0 Vicryl in [id number] fashion. All wounds were irrigated and closed using 4-0 Monocryl. Marcaine was injected around them for postoperative analgesia and skin glue used as a dressing. The patient was awakened, extubated and transferr ed to recovery in stable condition. My physician political science research assistant was present for the entire case. She helped prep the patient. She helped run the camera as well as provide traction throughout my dissection. She also helped with wound closure and dressing placement. I attest to the content of the Intraoperative Record and any orders documented therein. Any exceptions are noted below.
[2020-06-13] MEDS: fentaNYL citrate 100 MCG/2 ML VIAL IV PRN ×4 (11:15→11:49)
[2020-06-13] MEDS ORDERED: fentaNYL citrate 100 MCG/2 ML VIAL IV PRN (12:12)
--- NOTE | 2020-06-13 12:15 | XRay Report ---
XR chest 1V portable HISTORY: 70 years-old Female SOB after hiatal hernia repair with fundoplication acute shortness of b reath status post hernia repair COMPARISON: Chest radiograph 08/24/2019 TECHNIQUE: Portable AP view of the chest FINDINGS: Cardiac silhouette is upper limits of normal in size. Linear bibasilar and right perihilar opacities. Chronic interstitial coarsening. No pneumothorax, pleural effusion or overt pulmonary edema. Subcuta neous edema of the bilateral supraclavicular distributions. Equivocal pneumomediastinum. Degenerative changes of the shoulders and spine. IMPRESSION: 1. Equivocal pneumomediastinum with subcutaneous emphysema within the bilateral supraclavicular distr ibutions, likely on a postoperative basis. 2. Cardiomegaly with mild interstitial coarsening. 3. Linear right perihilar and bibasilar opacities suggest probable atelectasis. ACT 112: Negative or not required by law. The above report was generated using voice recognition software. It may contain grammatical, syntax o r spelling errors. Electronically signed by: Luke Quiñonez M.D. 06/13/2020 12:14 PM
[2020-06-13] MEDS ORDERED: ALBUTEROL HFA 8 GM INHALER INH PRN (12:56)
[2020-06-13] MEDS ORDERED: PROCHLORPERAZINE 5 MG in SYRINGE 4 ML IV PRN (12:56)
[2020-06-13] MEDS ORDERED: oxyCODONE HCL IR 5 MG TAB (IMMEDIATE RELEASE) PO PRN ×2 (12:56)
[2020-06-13] MEDS ORDERED: MoRPHine SULFATE 2 MG/ML CARP IV PRN (13:03)
[2020-06-13] MEDS: LACTATED RINGER'S 1,000 ML IV SCH ×2 (13:07→23:40)
--- NOTE | 2020-06-13 14:19 | Anesthesiology Progress Note ---
Date of Service June 13, 2020 Anesthesia Post Procedure Vital Signs Vital Signs: Temp Pulse Pulse Resp BP BP Pulse Ox 06/13/20 13:50 84 16 165/84 H 99 06/13/20 13:25 89 16 167/85 H 98 06/13/20 12:25 36.5 C 62 16 133/68 95 06/13/20 12:15 83 18 151/69 H 93 06/13/20 12:05 82 20 147/70 H 93 06/13/20 11:55 58 L 19 153/70 H 94 06/13/20 11:45 81 16 150/90 H 97 06/13/20 11:35 83 15 148/71 H 98 06/13/20 11:25 78 19 153/82 H 95 06/13/20 11:15 75 17 147/80 H 98 06/13/20 11:05 82 16 156/83 H 100 06/13/20 10:57 36.0 C L 84 13 160/69 H 99 06/13/20 07:24 36.5 C 82 20 182/90 H 99 Pain Intensity Abdomen: Pain Intensity: 5 Bilateral Chest: Pain Intensity: 4 Transfer of Care Handoff Completed per policy Notes Mental Status: alert / awake / arousable and participated in evaluation Patient Amnestic to Procedure: Yes Nausea / Vomiting: adequately controlled Pain: adequately controlled Airway Patency, RR, SpO2: stable & adequate BP & HR: stable & adequate Hydration State: stable & adequate Anesthetic Complications: no major complications apparent and Pt Satisfied with anesthetic care Notes: Pt was c/o SOB, discomfort taking big deep breaths and skin feeling tight along the chest in PACU. Vital signs stable and patient oxygenating well. Physical exam significant for crepitus along the upper chest and clavicles bilaterally. CXR ordered and no evidence of pneumothorax by my read. Official read on CXR from radiology significant for subcutaneous emphysema and equivocal pneumomediastinum which is consistent with the surgery performed. Overnight continuous pulse oximetry ordered. Pt otherwise ok to discharge to the floor for further postoperative care.
[2020-06-13] MEDS ORDERED: KETOROLAC TROMETHAMINE 15 MG/ML VIAL IV PRN (14:32)
[2020-06-13] MEDS: Scopolamine CHECK PATCH PLACEMENT SCH ×2 (16:30→23:39)
[2020-06-13] MEDS: ACETAMINOPHEN 1,000 MG/100 ML VIAL IV SCH ×2 (16:31→23:39)
[2020-06-13] MEDS ORDERED: ALPRAZolam 0.5 MG TABLET PO SCH (21:00)
[2020-06-13] MEDS ORDERED: BUDESONIDE/FORMOTEROL FUMARATE 80/4.5 60 PUFFS/INHALER INH SCH (21:00)
[2020-06-13] MEDS ORDERED: hydrALAZINE HCL 20 MG/ML VIAL IV PRN (21:37)
[2020-06-14 06:25] LABS: Hematocrit (blood only) 34.3 % (37-47); Hemoglobin 10.9 g/dL (12.0-16.0); Mean Corpuscular Hemoglobin 21.2 pg (25-34); Mean Corpuscular Hgb Conc 31.8 g/dL (32-36); Mean Corpuscular Volume 66.9 fL (80-100); Mean Platelet Volume 9.9 fL (7.4-10.4); Platelet Count 239 K/uL (130-400); RDW Coefficient of Variation 15.5 % (11.5-14.5); RDW Standard Deviation 37.3 fL (36.4-46.3); Red Blood Count 5.13 M/uL (4.2-5.4); White Blood Count 12.38 K/uL (4.8-10.8)
[2020-06-14 06:57] LABS: BUN Creatinine Ratio 16.8 (10-20); Calcium 9.5 mg/dl (8.5-10.1); Creatinine Clr Calc Pharmacy 59.1 ml/min; Est GFR (Non-African American) 69.9; Potassium 4.3 mmol/L (3.5-5.1)
[2020-06-14] MEDS: ACETAMINOPHEN 1,000 MG/100 ML VIAL IV SCH (08:09)
[2020-06-14] MEDS: Scopolamine CHECK PATCH PLACEMENT SCH (08:15)
--- NOTE | 2020-06-14 08:30 | Surgery Progress Note ---
Date of Service June 14, 2020 Assessment & Plan (1) Hiatal hernia: pod 1 doing well. wants to go home discussed instructions. ok for d/c. f/u in 1 week. Admission and Anticipated Discharge Date Admission Date: June 13, 2020 Subjective having some "gas pain" and incisional pain. aaron liquids. Physical Exam Physical Exam: alert. nad abd: soft. incisions look good. Results & Data ([facility]) Vital Signs (Past 12 Hours) Vital Signs Temp Pulse Pulse Resp BP BP Pulse Ox 06/14/20 08:03 36.9 C 84 16 168/81 H 98 06/14/20 03:20 37.1 C 80 20 148/80 H 94 06/13/20 23:15 37.2 C 94 H 20 125/55 L 94 06/13/20 20:45 37.4 C 101 H 18 175/86 H 95 PG Care Time/CCT Total # of Minutes Spent Total Time Spent with Patient: Total time spent is greater than 50% in coordination of care (as documented) at patient's floor/unit and/or counseling patient: Coding Level of Care Code None Diagnoses Hiatal hernia K44.9
[2020-06-14] MEDS ORDERED: PANTOprazole 40 MG TAB PO SCH (09:00)
[2020-06-14] MEDS ORDERED: MONTELUKAST SODIUM 10 MG TABLET PO SCH (09:00)
[2020-06-14] MEDS ORDERED: FLUTICASONE/VILANTEROL 100/25MCG 14 PUFFS/INHALER INH SCH (09:00)
--- NOTE | 2020-06-17 09:33 | Discharge Summary ---
Date of Service June 17, 2020 Admission HPI Per Admitting Provider Jade is here today for repair of her hiatal hernia as well as an antireflux procedure. She has had a longstanding history of acid reflux which is now failing conservative management. She also has a known hiatal hernia. Manometry work-up was negative for esophageal dysmotility. no clinical changes since her last office visit.... Principal Diagnosis hiatal hernia esophageal reflux Discharge Exam awake/alert Respiratory normal respiratory effort Gastrointestinal (Abdomen) Inspection/Auscultation: + abdominal surgical incision (c/d/i with dermabond overtop) Percussion/Palpation: abdomen soft Discharge Data Allergies Allergy/AdvReac Type Severity Reaction Status Date / Time ondansetron Allergy Intermediate MADE LIPS Verified 06/13/20 07:33 SWELL tomato Allergy Mild STOMACH Verified 06/13/20 07:33 ACHE broccoli Allergy Unknown STOMACH Verified 06/13/20 07:33 ACHE plum Allergy Unknown STOMACH Verified 06/13/20 07:33 ACHE cauliflower Allergy Verified 06/14/20 12:47 meperidine Allergy Unknown Verified 06/13/20 07:33 peas Allergy Verified 06/14/20 12:14 metformin AdvReac Severe Headaches Verified 06/13/20 07:33 Violcje-Vwu-Eus Reductase AdvReac Intermediate Joint Verified 06/13/20 07:33 Inhibitor pain/weakness tamsulosin AdvReac SWELLING Verified 06/13/20 07:33 terazosin AdvReac SWELLING Verified 06/13/20 07:33 Pea Allergy Mild STOMACH Uncoded 06/13/20 07:33 ACHE Procedures Performed Operation Date: 06/13/20 08:30 Actual Procedures p Laparoscopic Hiatal Hernia Repair with 360 Degree Fundoplication, Posterior Gastropexy(Not Applicable) - Kulwinder Rogel, DO Hospital Course (1) Hiatal hernia: This is a 70y F who presented to the [facility] on 06/13/20 for elective repair of her hiatal hernia. On this day she went to the OR with Dr. Rogel and underwent a hiatal hernia repair with 360 degree fundoplication & posterior gastropexy. The patient tolerated the procedure well, see op note for full details. The patient recovered in the PACU and was transferred to the med/surg unit in stable condition. Post op she was started on a clear liquid diet of which she tolerated well. Pain was controlled on prn regimen. Anti-nausea medications available if needed. Overnight the patient did require a straight catheterization x1 for urinary retention. On POD#1 her pain was manageable. Diet was advanced to full liquids. Her incisions were clean/intact. The patient was given discharge instructions and asked to continue a liquidy/soft diet anything she can eat with a spoon over the next week. She was deemed stable for discharge to home and expressed understanding. Total Time Total Time Spent Total Time Spent (In Minutes): 15 Discharge Plan Discharge Items Patient Disposition: Home - Self-Care Reason For Visit: Hiatal Hernia; Esophageal Reflux Discharge Diagnosis: hiatal hernia repair Activity: Per Instructions section Lifting: No more than 10 pounds Bathing Comment: may shower; no soaking in tubs/pools Exercise/Sports: Wait until after follow-up appointment Non-emergency contact: Surgeon Call non-emergency contact if: you have any medication questions, your symptoms worsen, your pain is not controlled, your pain is worsening, your temperature is above 101.5, your wound has increased redness, your wound has increased drainage and your wound pain has increased Follow-up/Referrals: Kulwinder Rogel DO [Surgeon] - 06/24/20 9:30 am (appointment scheduled June 24, 2020 @ 9:[address] Rogel.) Corinne Tavarez MD [Primary Care Provider] - 06/19/20 10:30 am (Appointment Dr. Tavarez June 19, 2020 @ 1030 at the [facility]. address is: [address] [place] [id number]) Diet: Full liquid Diet Texture: Pureed (blended smooth) Diet Comment: soft/liquidy diet that can be eaten with a spoon Addtl Attending Provider Instructions: Do not take the narcotic [place] and Tylenol concurrently as they both contain Acetaminophen. You should not exceed more than 3 grams of Acetaminophen within a 24 hour time period. Pending Studies at Discharge: No Stand-Alone Forms: My [facility] Medications and IN Order Prescriptions: New hydrocodone-acetaminophen [[place]] 5-325 mg tablet 1 - 2 tab PO .q4-6h PRN (Reason: pain, for initial therapy, max 6 tabs per day) Qty: 15 RF: 0 prochlorperazine maleate [Compazine] 10 mg tablet 10 mg PO BID PRN (Reason: anxiety) Qty: 10 RF: 0 Continued Symbicort 80-4.5 mcg/actuation HFA aerosol inhaler 2 puffs INH BID Qty: 1 RF: 11 albuterol sulfate 90 mcg/actuation HFA aerosol inhaler 2 puffs inhalation Q4H PRN (Reason: bronchospasm) Qty: 18 RF: 11 alprazolam [Xanax] 0.5 mg tablet 0.5 mg PO HS RF: 0 multivitamin Capsule 1 cap PO DAILY RF: 0 cholecalciferol (vitamin D3) 25 mcg (1,000 unit) capsule 25 mcg PO DAILY RF: 0 losartan 50 mg tablet 50 mg PO HS RF: 0 azelastine 137 mcg (0.1 %) aerosol,spray 2 sprays INTNAS BID Qty: 30 RF: 3 omeprazole 20 mg capsule,delayed release(DR/EC) 20 mg PO QAM RF: 0 montelukast 10 mg tablet 10 mg PO QAM RF: 0 Discontinued acetaminophen [Tylenol] 325 mg Tablet 325 mg PO QID PRN (Reason: Pain) RF: 0 Discharge Orders: Discharge Order (Routine); Ordered 06/14/20 Ordered By: Kulwinder Thompson/Other Patient Handouts: How a Hernia Develops, ED Hernia (Adult) Admission Data Admit Date/Time: 06/13/20 10:58 Attending Provider: Kulwinder Rogel Admit Provider: Kulwinder Rogel Primary Care Provider: Corinne Tavarez Other Interventions: Discharge Summary Assessment (RN) Last Done: 06/14/20 09:57 Coding Level of Care Code D/C Day Management <30 mins Diagnoses Hiatal hernia K44.9
== END 2020-06-14 13:55 | disposition home or self-care (01) ==
LOC: ASU 07:02 → 3W 07:02

== ENCOUNTER 2022-03-24 08:23 | Inpatient (IN) ==
--- NOTE | 2022-03-20 08:40 | Anesthesiology Consultation ---
Date of Service March 20, 2022 Assessment & Plan (1) Encounter for pre-operative examination: Chart Review Chart Review: Acceptable Risk for Surgery (pending preop Covid testing results ) and Patient NOT seen in Pre Admission Testing - Check BSG AM DOS Per nursing assessment 03/12/22, patient denies any recent travel. No known Covid positive exposures or Covid related symptoms. No known Covid infection in the past 90 days. Pt is fully vaccinated for Covid. Preop Covid testing scheduled 03/20/22= results pending Pt seen by PCP 03/13/22 = Seen for preop evaluation. Chronic back pain due to spo ndylolisthesis- will be having fusion under GA. Htn- controlled. Asthma- stable. Impaired fasting glucose- will check A1C. (Addendum 03/15/22 showed A1C to be 6.3) "Based on current available information provided by the patient, reviewing her PMH, previous notes, reviwing labs, pt meets the criteria for RCRI Class I with a score of 0." Laparoscopic Hiatal Hernia Repair with fundoplication 06/13/20= Done under GA with Grade 3 view with MAC #3. ETT #7.0. Scop patch on preop History Surgery Operation Date: 03/24/22 10:05 Proposed Procedures p L4-S1 Decompression and Fusion, Spinal Cord Monitoring - Deyvi Xavier, Height/Weight Height: 5 ft 3 in Weight: 72.575 kg Allergies Allergy/AdvReac Type Severity Reaction Status Date / Time ondansetron Allergy Intermediate MADE LIPS Verified 03/12/22 13:51 SWELL tomato Allergy Mild STOMACH Verified 03/12/22 13:51 ACHE broccoli Allergy Unknown STOMACH Verified 03/12/22 13:51 ACHE plum Allergy Unknown STOMACH Verified 03/12/22 13:51 ACHE cauliflower Allergy Verified 03/12/22 13:51 erythromycin base Allergy stomach Verified 03/12/22 13:51 upset meperidine Allergy Unknown Verified 03/12/22 13:51 peas Allergy Verified 03/12/22 13:51 metformin AdvReac Severe Headaches Verified 03/12/22 13:51 Xbkkxdx-BHC-CqF Reductase AdvReac Intermediate Joint Verified 03/12/22 13:51 Inhibitor pain/weakness [Zgvsdyt-Cmv-Zyf Reductase Inhibitor] tamsulosin AdvReac SWELLING Verified 03/12/22 13:51 terazosin AdvReac SWELLING Verified 03/12/22 13:51 Pea Allergy Mild STOMACH Uncoded 03/12/22 13:51 ACHE Medications Home Medications Medication Instructions Recorded Confirmed Last Taken losartan 50 mg tablet 50 mg PO HS 06/06/19 03/12/22 06/12/20 20:30 multivitamin 1 cap PO QAM 04/10/20 03/12/22 06/12/20 09:00 montelukast 10 mg tablet 10 mg PO QAM #90 tabs 02/06/21 03/12/22 Unknown albuterol sulfate 90 mcg/actuation 2 puff inhalation Q4H PRN 04/01/21 03/12/22 Unknown aerosol inhaler bronchospasm #18 grams alprazolam 0.5 mg tablet (Xanax) 0.25 mg PO HS 04/03/21 03/12/22 Unknown calcium carbonate 500 mg calcium 500 mg PO QAM 04/03/21 03/12/22 Unknown (1,250 mg) tablet (Calcium 500) acetaminophen 325 mg capsule 325 mg PO Q6H PRN Pain 03/12/22 03/12/22 Unknown azelastine 137 mcg (0.1 %) nasal 2 spray intranasal HS 03/12/22 03/12/22 Unknown spray aerosol cholecalciferol (vitamin D3) 125 125 mcg PO QAM 03/12/22 03/12/22 Unknown mcg (5,000 unit) tablet magnesium carb,citrate,oxide 1 tab PO QAM 03/12/22 03/12/22 Unknown oxybutynin chloride 5 mg 5 mg PO QAM 03/12/22 03/12/22 Unknown tablet,extended release 24 hr (Ditropan XL) tramadol 50 mg tablet 25 mg PO Q6H PRN Pain 03/12/22 03/12/22 Unknown fluticasone 250 mcg-salmeterol 50 1 inh inhalation BID #60 ea 03/19/22 Unknown mcg/dose blistr powdr for inhalation (Wixela Inhub) Past Medical History Medical History Anxiety Stable Asthma Stable and controlled Chronic musculoskeletal pain Hiatal hernia History History of anesthesia reaction PONV History of Holter monitoring "Years ago saw a block operator for heart skipping beat" no longer follows w/ Cardio Hx of thalassemia Hyperlipemia Hypertension Moderate osteopenia Nocturia Type 2 diabetes mellitus Diet controlled Uterine prolapse Past Family History Family History Father Colorectal cancer Coronary heart disease Heart disease Hypertension Mother Hypertension Aunt Cancer cervical Uterine cancer Other Myocardial infarction Prostate cancer Denies family history of Ovarian cancer Breast cancer Past Surgical History Surgical History History of Carlee fundoplication History of repair of hiatal hernia (06/13/20) Laparoscopic Hiatal Hernia Repair with 360 Degree Fundoplication, Posterior Gastropexy Dr. Rogel 06/13/2020 History of tonsillectomy Hx of cataract extraction bilat. Hx of colonoscopy S/P carpal tunnel release bilat. Social History Smoking Status: Never smoker Do You Dip or Chew Tobacco: No Hx Alcohol Use: Yes Alcohol type: beer, wine and hard liquor alcohol intake frequency: holidays/special occasions only Hx Substance Use: No substance use type: does not use Lab Results Anesthesia Preop Results Results Anesthesia Widget: WBC 7.34 K/ul (4.8-10.8) 03/19/22 Hgb 12.3 g/dl (12.0-16.0) 03/19/22 Hct 39.8 % (34.1-44.9) 03/19/22 Plt 285 K/uL (130-400) 03/19/22 Na 139 mmol/L (136-145) 03/19/22 K 3.7 mmol/L (3.5-5.1) 03/19/22 Cl 104 mmol/L (98-107) 03/19/22 CO2 29 mmol/L (21-32) 03/19/22 BUN 10 mg/dl (6-23) 03/19/22 Creat 0.75 mg/dl (0.6-1.2) 03/19/22 Glucose Level 106 mg/dl (70-99(Fasting)) H 03/19/22 PT 11.7 Seconds (9.0-12.0) 03/19/22 PTT 27.9 Seconds (21.0-31.0) 03/19/22 INR 1.1 (0.9-1.1) 03/19/22 Urine Color Yellow 03/19/22 Urine Appearance Clear (Clear) 03/19/22 Urine pH 7.5 (4.5-7.5) 03/19/22 Urine Specific [place] 1.006 (1.000-1.030) 03/19/22 Urine Protein Negative (Negative) 03/19/22 Urine Glucose (UA) Negative (Negative) 03/19/22 Urine Ketones Negative (Negative) 03/19/22 Urine Blood Negative (Negative) 03/19/22 Urine Nitrite Negative (Negative) 03/19/22 Urine Bilirubin Negative (Negative) 03/19/22 Urine Urobilinogen Negative (Negative) 03/19/22 Urine Leukocyte Esterase Negative (Negative) 03/19/22 Blood Type O Positive 03/19/22 Antibody Screen NEGATIVE 03/19/22 Testing Electrocardiogram Date: 03/19/22 Findings: + NSR @ (79bpm ) Normal EKG per cardio. Chest X-Ray Date: 03/19/22 Findings: + NAD
[~2022-03-24 08:23] MED LIST changes: +ACETAMINOPHEN 500 MG TAB PO SCH; +CeleBREX 200 MG CAP PO SCH; +GABAPENTIN 300 MG CAP PO SCH; +ceFAZolin 1000MG 1,000 MG/7.5 ML SYR IV SCH; -ceFAZolin 2000MG 2,000 MG/15 ML SYR IV SCH
[2022-03-24] MEDS ORDERED: ONDANSETRON INJ 2 MG/ML 2 ML VIAL ONE (08:43)
[2022-03-24] MEDS ORDERED: DEXAMETHASONE SOD INJ 4 MG/ML VIAL ONE (08:43)
[2022-03-24] MEDS ORDERED: NEOSTIGMINE METHYLSULFATE 1 MG/ML 10ML VIAL ONE (08:43)
[2022-03-24] MEDS ORDERED: GLYCOPYRROLATE 0.2 MG/ML VIAL ONE (08:43)
[2022-03-24] MEDS ORDERED: PROPOFOL IV EMULSION 10 MG/ML 20 ML VIAL IV ONE (08:43)
[2022-03-24] MEDS ORDERED: MIDAZOLAM HCL 1 MG/ML 2ML VIAL ONE (08:43)
[2022-03-24] MEDS ORDERED: LIDOCAINE 2% 20 MG/ML 5 ML SYR IV ONE (08:44)
[2022-03-24] MEDS ORDERED: ROCURONIUM BROMIDE 10 MG/ML 5 ML VIAL IV ONE (08:44)
[2022-03-24] MEDS ORDERED: HYDROmorphone INJ 2 MG/ML SYR/VIAL ONE (08:44)
[2022-03-24] MEDS ORDERED: LARYING-O-JET KIT (LTA) ONE (08:46)
[2022-03-24] MEDS ORDERED: HYDROmorphone INJ 2 MG/ML SYR/VIAL IV PRN (09:53)
[2022-03-24] MEDS ORDERED: ePHEDrine sulfate 50 MG/ML AMP IV PRN (09:53)
[2022-03-24] MEDS ORDERED: ATROPINE SULFATE 0.1 MG/ML 10ML SYR IV PRN (09:53)
--- NOTE | 2022-03-24 09:56 | History & Physical Bridge Note ---
Date of Service March 24, 2022 History & Physical Bridge Note I have examined the patient, reviewed the History & Physical and in the interval since the performance of the History & Physical I have noted the following changes of clinical significance: no changes noted
--- NOTE | 2022-03-24 09:59 | History & Physical Report ---
Date of Service March 24, 2022 Assessment & Plan (1) Neurogenic claudication due to lumbar spinal stenosis: Plan: L4-S1 decompression and fusion History of Present Illness Chief Complaint: Back and leg pain Primary Care Provider: Corinne Tavarez MD This is a 71-year-old female presents with chronic persistent back and leg pain. Failing course of nonoperative care she is here for surgical mention. Allergies Allergy/AdvReac Type Severity Reaction Status Date / Time ondansetron Allergy Intermediate MADE LIPS Verified 03/24/22 08:50 SWELL tomato Allergy Mild STOMACH Verified 03/24/22 08:50 ACHE broccoli Allergy Unknown STOMACH Verified 03/24/22 08:50 ACHE plum Allergy Unknown STOMACH Verified 03/24/22 08:50 ACHE cauliflower Allergy Verified 03/24/22 08:50 erythromycin base Allergy stomach Verified 03/24/22 08:50 upset meperidine Allergy Unknown Verified 03/24/22 08:50 peas Allergy Verified 03/24/22 08:50 metformin AdvReac Severe Headaches Verified 03/24/22 08:50 Qfxdjln-DWO-VcR Reductase AdvReac Intermediate Joint Verified 03/24/22 08:50 Inhibitor pain/weakness [Gkwghxa-Bdp-Tul Reductase Inhibitor] tamsulosin AdvReac SWELLING Verified 03/24/22 08:50 terazosin AdvReac SWELLING Verified 03/24/22 08:50 Pea Allergy Mild STOMACH Uncoded 03/24/22 08:50 ACHE Home Medications Medication Instructions Recorded Confirmed Type losartan 50 mg tablet 50 mg PO HS 06/06/19 03/24/22 History multivitamin 1 cap PO QAM 04/10/20 03/24/22 History montelukast 10 mg tablet 10 mg PO QAM #90 tabs 02/06/21 03/24/22 Rx albuterol sulfate 90 mcg/actuation 2 puff inhalation Q4H PRN 04/01/21 03/24/22 Rx aerosol inhaler bronchospasm #18 grams alprazolam 0.5 mg tablet (Xanax) 0.25 mg PO HS 04/03/21 03/24/22 History calcium carbonate 500 mg calcium 500 mg PO QAM 04/03/21 03/24/22 History (1,250 mg) tablet (Calcium 500) acetaminophen 325 mg capsule 325 mg PO Q6H PRN Pain 03/12/22 03/24/22 History azelastine 137 mcg (0.1 %) nasal 2 spray intranasal HS 03/12/22 03/24/22 History spray aerosol cholecalciferol (vitamin D3) 125 125 mcg PO QAM 03/12/22 03/24/22 History mcg (5,000 unit) tablet magnesium carb,citrate,oxide 1 tab PO QAM 03/12/22 03/24/22 History oxybutynin chloride 5 mg 5 mg PO QAM 03/12/22 03/24/22 History tablet,extended release 24 hr (Ditropan XL) tramadol 50 mg tablet 25 mg PO Q6H PRN Pain 03/12/22 03/24/22 History fluticasone 250 mcg-salmeterol 50 1 inh inhalation BID #60 ea 03/19/22 03/24/22 Rx mcg/dose blistr powdr for inhalation ([facility] Inhub) Past Med/Surg History Medical History Anxiety Stable Asthma Stable and controlled Chronic musculoskeletal pain Hiatal hernia History History of anesthesia reaction PONV History of Holter monitoring "Years ago saw a insurance inspector for heart skipping beat" no longer follows w/ Cardio Hx of thalassemia Hyperlipemia Hypertension Moderate osteopenia Nocturia Type 2 diabetes mellitus Diet controlled Uterine prolapse Surgical History History of Carlee fundoplication History of repair of hiatal hernia (06/13/20) Laparoscopic Hiatal Hernia Repair with 360 Degree Fundoplication, Posterior Gastropexy Dr. Rogel 06/13/2020 History of tonsillectomy Hx of cataract extraction bilat. Hx of colonoscopy S/P carpal tunnel release bilat. Family History Father Colorectal cancer Coronary heart disease Heart disease Hypertension Mother Hypertension Aunt Cancer cervical Uterine cancer Other Myocardial infarction Prostate cancer Denies family history of Ovarian cancer Breast cancer Social History Smoking Status: Never smoker Second Hand Exposure: No; Do You Dip or Chew Tobacco: No; Tobacco Cessation Education Requested by Patient: No Hx Alcohol Use: Yes Alcohol type: beer, wine and hard liquor Hx Substance Use: No Preferred Language: Upper Sorbian Communication Ability: Effective Visual Impairment: No Limitations Hearing Ability: Normal Presentation Designer Required: No Beliefs That Will Affect Care: None marital status: Current Living Situation: Alone current occupational status: retired How many Children do You have: 1 Other Information That Helps Us Care for You: No Feels Safe at Home: Yes Safety Concerns: Feels Safe At This Time Assistive Devices: Glasses Physical Exam Physical Exam: Patient is alert and oriented Heart regular rhythm Lungs clear Results & Data Results & Data ([facility]) Vital Signs (Past 12 Hours) Vital Signs Temp Pulse Resp BP Pulse Ox O2 Del Method 03/24/22 08:57 36.9 C 75 16 155/90 H 97 Room Air
[2022-03-24] MEDS ORDERED: BUPIVACAINE/EPINEPHRINE 0.25% 1:200,000 30 ML VIAL ONE (10:06)
[2022-03-24] MEDS ORDERED: ceFAZolin 330 MG/ML 1 GM VIAL ONE (10:06)
[2022-03-24] MEDS ORDERED: SCOPOLAMINE 1 MG TDSY TD ONE (10:24)
[2022-03-24] MEDS ORDERED: FLOSEAL HEMOSTATIC MATRIX 10ML TOP ONE (11:09)
[2022-03-24] MEDS ORDERED: ePHEDrine sulfate 50 MG/ML AMP ONE (11:24)
--- NOTE | 2022-03-24 12:13 | Operative Report ---
Post Operative Report Pre & Post Diagnosis Operation Date: 03/24/22 10:05 Pre-Op Diagnosis: Spinal Stenosis, Lumbar Region with Neurogenic Post-Op Diagnosis: Spinal Stenosis, Lumbar Region with Neurogenic I identified the patient and participated in the time-out.: Yes Procedure Operation Date: 03/24/22 10:05 Actual Procedures Lumbar decompression bilateral medial facetectomies and foraminotomies L3-L4, L4-L5 and L5-S1. #2 posterior spinal fusion L4-L5 L5-S1. #3 placement posterior instrumentation L4-L5 L5-S1. #4 interbody fusion L4-L5 L5-S1. #5 pl acement of Spira 11 x 22 mm at L4-5 and 8 x 22 mm at L5-S1. #6 placement locally harvested morselized autograft in the posterior gutters. #7 placement of I factor combined with V toss interbody space and posterior gutters. Surgeon Deyvi Xavier, Poultry Farmer Kaleigh Blanco Estimated Blood Loss 200 Findings Consistent with Post-Op Diagnosis Specimens None Indications This is a 71-year-old female presents with chronic persistent back and leg pain management after failed extensive course of nonoperative care is here for surgical invention. Description of Procedure Patient was met with identified informed consent obtained. Patient was then taken to the operative suite underwent a patient placed in a prone position on a Zachary table top Jose Alberto frame. All bony prominences well-padded eyes inspected to ensure no external pressure placed upon the. This point the lumbar spine was prepped and draped in normal sterile fashion. Sharp dissection with the assistance of Bovie cartilage from down to and exposing the lamina transverse processes of L4-L5 and sacral ala bilaterally. From caudal to cephalad fashion complete laminectomy L5 L4 partial laminectomy of 3 was performed including bilateral medial facetectomies and foraminotomies addressing severe spinal stenosis. Pedicle screws then placed in L4-L5 and S1 levels bilaterally with assistance of fluoroscopy the properly sized jane placed. By way the transforaminal approach on the left complete discectomy of L5-S1 was performed endplates curetted to subcortically bone and a 8 x 22 mm spiral cage with I factor tapped in position. Then proceeded to L4-L5 again by way of a transforaminal approach on the left complete discectomy performed endplates curetted to subcortical bleeding bone and a 11 x 22 mm spiral cage filled with I factor tapped in position. The rods and locked into final position bilaterally. The transverse processes of L for L5 and sacral ala burred to subcortical bleeding bone. I factor combined with V toss and locally harvested morselized autograft placed in the posterior gutters. 15 round ALEXANDER drain inserted. The incision was then closed with 1 Vicryl the fascia 2-0 Vicryl subcutaneously and 4 Monocryl for final skin closure. Steri-Strip sterile dressings placed. Patient waken taken PACU stable condition. Please note spinal cord monitoring was utilized at the procedure no changes noted. Lastly Kaleigh Blanco was present at the entire procedure involved the patient positioning complex portions of the surgery and final skin closure. I attest to the content of the Intraoperative Record and any orders documented therein. Any exceptions are noted below.
[2022-03-24] MEDS: fentaNYL citrate 100 MCG/2 ML VIAL IV PRN ×2 (12:42→12:47)
--- NOTE | 2022-03-24 13:03 | Fluoroscopy Report ---
FL lumbar spine 2-3V CLINICAL HISTORY: L4-S1 decompression and fusion COMPARISON STUDY: None. FLUOROSCOPY TIME: 25 seconds.. FINDINGS: 2 fluoroscopic spot images of the lumbar spine demonstrate posterior decompression and fusi on from L4 through S1 with pedicle screws and rods. The hardware appears intact. Disc spacers are in place. IMPRESSION: Fluoroscopic assistance provided for L4-S1 decompression and fusion ACT 112: Negative or not required by law. Electronically signed by: Valeriy Greenwood M.D. 03/24/2022 1:02 PM
--- NOTE | 2022-03-24 13:11 | Anesthesiology Progress Note ---
Date of Service March 24, 2022 Anesthesia Post Procedure Vital Signs Vital Signs: Temp Pulse Resp BP Pulse Ox O2 Del Method O2 Flow Rate 03/24/22 12:55 87 16 136/72 96 Nasal Cannula 4 03/24/22 12:45 73 16 155/76 H 98 Oxymask 5 03/24/22 12:35 84 16 168/84 H 100 Oxymask 5 03/24/22 12:29 97.3 F L 85 16 144/65 H 96 Oxymask 5 03/24/22 08:57 98.4 F 75 16 155/90 H 97 Room Air Pain Intensity Left Lower Back: Pain Intensity: 3 Transfer of Care Handoff Completed per policy Notes Mental Status: alert / awake / arousable and participated in evaluation Patient Amnestic to Procedure: Yes Nausea / Vomiting: adequately controlled Pain: adequately controlled Airway Patency, RR, SpO2: stable & adequate BP & HR: stable & adequate Hydration State: stable & adequate Anesthetic Complications: no major complications apparent and Pt Satisfied with anesthetic care
[2022-03-24] MEDS ORDERED: PROMETHAZINE HCL INJ 25 MG/ML 1 ML VIAL ONE (13:56)
[2022-03-24] MEDS ORDERED: PROMETHAZINE HCL 6.25 MG in SODIUM CHLORIDE 0.9% 50 ML IV STA (13:57)
[2022-03-24] MEDS ORDERED: SODIUM CHLORIDE 0.9% INJ 10 ML VIAL ONE (13:57)
[2022-03-24] MEDS ORDERED: LORazepam 0.5 MG TAB PO PRN (14:32)
[2022-03-24] MEDS ORDERED: diphenhydrAMINE Capsule 25 MG CAP PO PRN (14:32)
[2022-03-24] MEDS ORDERED: hydrOXYzine HCl 25 MG TAB PO PRN (14:32)
[2022-03-24] MEDS ORDERED: ACETAMINOPHEN 500 MG TAB PO PRN (14:32)
[2022-03-24] MEDS ORDERED: LORazepam 0.5 MG in SYRINGE 0.25 ML IV PRN (14:32)
[2022-03-24] MEDS ORDERED: HYDROmorphone INJ 0.5 MG/0.5 ML SYR IV PRN (14:32)
[2022-03-24] MEDS ORDERED: NALOXONE HCL 0.4 MG/1 ML VIAL/CARP IV PRN (14:32)
[2022-03-24] MEDS ORDERED: SOD PHOSPHATE/SOD BIPHOSPHATE ENEMA 132 ML BTL PR PRN (14:32)
[2022-03-24] MEDS ORDERED: ALUMINUM/MAGNESIUM SUSP 30 ML UDC PO PRN (14:32)
[2022-03-24] MEDS ORDERED: FAMOTIDINE 20 MG TAB PO PRN (14:32)
[2022-03-24] MEDS ORDERED: METOCLOPRAMIDE HCL INJ 5 MG/ML 2 ML VIAL IV PRN (14:32)
[2022-03-24] MEDS ORDERED: bisacodyL 10 MG SUPP PR PRN (14:32)
[2022-03-24] MEDS ORDERED: PROMETHAZINE HCL 12.5 MG in SODIUM CHLORIDE 0.9% 50 ML IV PRN (14:32)
[2022-03-24] MEDS ORDERED: ONDANSETRON 4 MG OD TAB PO PRN (14:32)
[2022-03-24] MEDS ORDERED: ACETAMINOPHEN 1,000 MG/100 ML VIAL IV PRN (14:32)
[2022-03-24] MEDS ORDERED: ALBUTEROL HFA 8 GM INHALER INH PRN (14:32)
[2022-03-24] MEDS ORDERED: MAGNESIUM HYDROXIDE SUSP 30 ML UDC PO PRN (14:32)
[2022-03-24] MEDS ORDERED: SODIUM CHLORIDE 0.9% 1000ML 1,000 ML IV SCH (14:32)
[2022-03-24] MEDS ORDERED: ONDANSETRON INJ 2 MG/ML 2 ML VIAL IV PRN (14:32)
--- NOTE | 2022-03-24 15:04 | Consultation ---
Date of Consultation March 24, 2022 Assessment & Plan (1) Neurogenic claudication due to lumbar spinal stenosis: s/p lumbar decompression/fusion procedure today by Dr Xavier (Lumbar decompression bilateral medial facetectomies and foraminotomies L3-L4, L4-L5 and L5-S1; posterior spinal fusion L4-L5 L5-S1). Defer fluid management, pain management, DVT proph, disposition to primary orthopedic team. (2) Esophageal reflux: Not on meds at home per MAR. Will order pepcid 20mg prn. (3) Anxiety: takes xanax 0.25mg HS. this has already been ordered. (4) Hyperlipemia: not on meds for such at this time. (5) Hypertension: in the immediate perioperative period would recommend holding tonight's losartan. check BMP in am; if Creatinine is stable tomorrow and if BPs require ARB then resume losartan at that time. (6) Asthma: no exacerbation at this time cont albuterol prn cont advair or similar formulary equivalent (7) Type 2 diabetes mellitus: change clear liquid diet to diabetic clears BSGs ac/hs as the perioperative steroids will likely raise her BSGs institute novolog as needed check a1c in am does not take PO meds at home for DM Plan Thank you for this consult. We will follow with you. History of Present Illness Requesting Physician: Deyvi Xavier DO Reason for Consultation: post-operative medical management Attending Physician: Deyvi Xavier DO History of Present Illness 71yo female with h/o HTN, pre-DM, chronic low back pain due to lumbar spinal stenosis, asthma and GERD presented today for elective lumbar decompression with fusion procedure by Dr Xavier today. I saw Mrs Price on the orthopedic floor post-op. She was resting comfortably. She admitted to feeling groggy/tired and a "little off." She denied any chest pain, dyspnea, or abdominal pain. She did have some mild nausea upon arrival to the floor post- op. Operate record from today indicates she had ~EBL of 200cc. She did receive IV dexamethasone 8mg x 1 perioperatively. Records show h/o pre-diabetes. Allergies Allergy/AdvReac Type Severity Reaction Status Date / Time ondansetron Allergy Intermediate MADE LIPS Verified 03/24/22 08:50 SWELL tomato Allergy Mild STOMACH Verified 03/24/22 08:50 ACHE broccoli Allergy Unknown STOMACH Verified 03/24/22 08:50 ACHE plum Allergy Unknown STOMACH Verified 03/24/22 08:50 ACHE cauliflower Allergy Verified 03/24/22 08:50 erythromycin base Allergy stomach Verified 03/24/22 08:50 upset meperidine Allergy Unknown Verified 03/24/22 08:50 peas Allergy Verified 03/24/22 08:50 metformin AdvReac Severe Headaches Verified 03/24/22 08:50 Lhstddm-HSI-ZhJ Reductase AdvReac Intermediate Joint Verified 03/24/22 08:50 Inhibitor pain/weakness [Vnettvu-Wxq-Vfb Reductase Inhibitor] tamsulosin AdvReac SWELLING Verified 03/24/22 08:50 terazosin AdvReac SWELLING Verified 03/24/22 08:50 Pea Allergy Mild STOMACH Uncoded 03/24/22 08:50 ACHE Home Medications Medication Instructions Recorded Confirmed Type losartan 50 mg tablet 50 mg PO HS 06/06/19 03/24/22 History multivitamin 1 cap PO QAM 04/10/20 03/24/22 History montelukast 10 mg tablet 10 mg PO QAM #90 tabs 02/06/21 03/24/22 Rx albuterol sulfate 90 mcg/actuation 2 puff inhalation Q4H PRN 04/01/21 03/24/22 Rx aerosol inhaler bronchospasm #18 grams alprazolam 0.5 mg tablet (Xanax) 0.25 mg PO HS 04/03/21 03/24/22 History calcium carbonate 500 mg calcium 500 mg PO QAM 04/03/21 03/24/22 History (1,250 mg) tablet (Calcium 500) acetaminophen 325 mg capsule 325 mg PO Q6H PRN Pain 03/12/22 03/24/22 History azelastine 137 mcg (0.1 %) nasal 2 spray intranasal HS 03/12/22 03/24/22 History spray aerosol cholecalciferol (vitamin D3) 125 125 mcg PO QAM 03/12/22 03/24/22 History mcg (5,000 unit) tablet magnesium carb,citrate,oxide 1 tab PO QAM 03/12/22 03/24/22 History oxybutynin chloride 5 mg 5 mg PO QAM 03/12/22 03/24/22 History tablet,extended release 24 hr (Ditropan XL) tramadol 50 mg tablet 25 mg PO Q6H PRN Pain 03/12/22 03/24/22 History fluticasone 250 mcg-salmeterol 50 1 inh inhalation BID #60 ea 03/19/22 03/24/22 Rx mcg/dose blistr powdr for inhalation (Dionicioxjosefina Inhub) Patient History Medical History (Updated 03/24/22 @ 15:47 by Ted Jaimes) Anxiety Stable Asthma Stable and controlled Chronic musculoskeletal pain Hiatal hernia History History of anesthesia reaction PONV History of Holter monitoring "Years ago saw a legal executive for heart skipping beat" no longer follows w/ Cardio Hx of thalassemia Hyperlipemia Hypertension Moderate osteopenia Nocturia Type 2 diabetes mellitus Diet controlled Uterine prolapse Surgical History History of Carlee fundoplication History of repair of hiatal hernia (06/13/20) Laparoscopic Hiatal Hernia Repair with 360 Degree Fundoplication, Posterior Gastropexy Dr. Rogel 06/13/2020 History of tonsillectomy Hx of cataract extraction bilat. Hx of colonoscopy S/P carpal tunnel release bilat. Family History (Updated 03/24/22 @ 15:43 by Ted Jaimes) Father Colorectal cancer Coronary heart disease Heart disease Hypertension Gastric cancer Mother Hypertension Aunt Cancer cervical Uterine cancer Grandfather (Paternal) Prostate cancer Grandmother (Paternal) Myocardial infarction Daughter Hypertension Denies family history of Ovarian cancer Deep vein thrombosis Clotting disorder Breast cancer Pulmonary embolism Social History (Updated 03/24/22 @ 15:43 by Ted Jaimes) Smoking Status: Never smoker Second Hand Exposure: No; Do You Dip or Chew Tobacco: No; Tobacco Cessation Education Requested by Patient: No Hx Alcohol Use: Yes Alcohol type: wine Alcohol type Comment: 1 glass wine several nights/week Hx Substance Use: No Preferred Language: Peruvian Communication Ability: Effective Visual Impairment: No Limitations Hearing Ability: Normal Vacuum Drum Drier Operator Required: No Beliefs That Will Affect Care: None marital status: Current Living Situation: Alone current occupational status: 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) How many Children do You have: 1 Other Information That Helps Us Care for You: No Feels Safe at Home: Yes Safety Concerns: Feels Safe At This Time Assistive Devices: Glasses Review of Systems Review of Systems: gen - fatigue/tired; no fever CV - no chest pain pulm - no cough or dyspnea GI - mild nausea but no vomiting; no abd pain - mcdaniel in place; typically has significant frequency of urination at baseline neuro - denies paresthesias of legs today endo - denies diabetes Physical Exam Physical Exam: gen - sleepy/tired but able to answer questions & follow commands eyes - PERRl, about 1mm b/l mouth - MMM, slight irritation posterior throat neck - no JVD heart - RRR, s1 s2, no murmur lungs - CTA b/l, no rales abd - slightly distended, BS+ but slightly decreased, NT, no HSM ext - no edema, pulses 2+ b/l neuro - strength 5/5 x 4 exts; DTRs 1-2+ b/l Results & Data ([facility]) Vital Signs (Past 12 Hours) Vital Signs Temp Pulse Resp BP Pulse Ox O2 Del Method O2 Flow Rate 03/24/22 14:32 36.8 C 76 18 144/58 H 95 Room Air 03/24/22 14:05 80 16 132/68 98 Nasal Cannula 2 03/24/22 13:34 64 16 135/71 98 Nasal Cannula 2 03/24/22 13:25 79 16 143/66 H 98 Nasal Cannula 2 03/24/22 13:15 72 16 133/64 96 Nasal Cannula 2 03/24/22 13:05 36.4 C L 72 16 141/77 H 98 Nasal Cannula 2 03/24/22 12:55 87 16 136/72 96 Nasal Cannula 4 03/24/22 12:45 73 16 155/76 H 98 Oxymask 5 03/24/22 12:35 84 16 168/84 H 100 Oxymask 5 03/24/22 12:29 36.3 C L 85 16 144/65 H 96 Oxymask 5 03/24/22 08:57 36.9 C 75 16 155/90 H 97 Room Air Laboratory Results post-op BSG 136 PG Care Time/CCT Total # of Minutes Spent Total Time Spent with Patient: Total time spent is greater than 50% in coordination of care (as documented) at patient's floor/unit and/or counseling patient: Coding Level of Care Code 27827 Subseq Hosp Care Lvl 2 Diagnoses Neurogenic claudication due to lumbar spinal stenosis M48.062 Esophageal reflux K21.9 Anxiety F41.9 Hyperlipemia E78.5 Hypertension I10 Asthma J45.909 Type 2 diabetes mellitus E11.9
[2022-03-24] MEDS: ceFAZolin 1000MG 1,000 MG/7.5 ML SYR IV SCH (17:16)
[2022-03-24] MEDS: HYDROmorphone INJ 1 MG/ML SYRINGE IV PRN ×2 (18:11→21:21)
[2022-03-24] MEDS ORDERED: LOSARTAN POTASSIUM 50 MG TAB PO SCH (21:00)
[2022-03-24] MEDS: ALPRAZolam 0.25 MG TABLET PO SCH (21:22)
[2022-03-24] MEDS: AZELASTINE HCL 0.1% NASAL 200 SPRAYS/27,400 MCG BTL SCH (21:23)
[2022-03-24] MEDS: DOCUSATE SODIUM/SENNA 50/8.6MG TAB PO SCH (21:23)
[2022-03-24] MEDS ORDERED: CARBOHYDRATES FOR HYPOGLYCEMIA PO PRN (21:45)
[2022-03-24] MEDS ORDERED: GLUCOSE 10 TAB/TUBE PO PRN (21:45)
[2022-03-24] MEDS ORDERED: GLUCAGON FOR INJ 1 MG VIAL IM PRN (21:45)
[2022-03-24] MEDS ORDERED: GLUCOSE 40% GEL 15 GM TUBE PO PRN (21:45)
[2022-03-24] MEDS ORDERED: DEXTROSE 50% 50 ML SYRINGE IV PRN (21:45)
[2022-03-25] MEDS: oxyCODONE HCL IR 5 MG TAB (IMMEDIATE RELEASE) PO PRN ×2 (00:47→20:11)
[2022-03-25] MEDS: ceFAZolin 1000MG 1,000 MG/7.5 ML SYR IV SCH (02:28)
[2022-03-25] MEDS: POLYETHYLENE (MIRALAX) 17 GM PACK PO SCH ×3 (05:37→17:44)
[2022-03-25 07:12] LABS: Basophils # (auto) 0.01 K/uL (0-0.2); Basophils % (auto) 0.1 %; Hematocrit (blood only) 29.3 % (34.1-44.9); Hemoglobin 9.1 g/dl (12.0-16.0); Immature Granulocytes # (auto) 0.05 K/uL (0.00-0.02); Immature Granulocytes % (auto) 0.4 %; Lymphocytes % (auto) 12.9 %; Mean Corpuscular Hemoglobin 21.4 pg (25.0-34.0); Mean Corpuscular Hgb Conc 31.1 g/dL (32.0-36.0); Mean Corpuscular Volume 68.8 fL (80.0-100.0); Monocytes # (auto) 0.99 K/uL (0.24-0.82); Monocytes % (auto) 8.5 %; Neutrophils # (auto) 9.04 K/uL (1.4-6.5); Neutrophils % (auto) 78.1 %; RDW Coefficient of Variation 15.9 % (11.5-14.5); RDW Standard Deviation 38.7 fL (36.4-46.3); Red Blood Count 4.26 M/uL (3.93-5.22); White Blood Count 11.59 K/ul (4.8-10.8)
[2022-03-25 07:23] LABS: Mean Platelet Volume 10.3 fL (9.4-12.3); Platelet Count 203 K/uL (130-400)
[2022-03-25 07:27] LABS: Estimated Average Glucose 148 mg/dl; Hemoglobin A1C 6.8 % (4.5-5.6)
[2022-03-25] MEDS: FLUTICASONE/VILANTEROL 200/25MCG 14 PUFFS/INHALER INH SCH (07:27)
[2022-03-25 07:32] LABS: Ovalocytes 1+; Tear Drop Cells 1+
[2022-03-25 07:34] LABS: BUN Creatinine Ratio 18.8 (10-20); Calcium 8.8 mg/dl (8.5-10.1); Creatinine Clr Calc Pharmacy 69.6 ml/min; Est GFR (African American) 100.8 ml/min; Potassium 3.7 mmol/L (3.5-5.1)
[2022-03-25] MEDS: MAGNESIUM OXIDE 400 MG TAB PO SCH (08:41)
[2022-03-25] MEDS: MONTELUKAST SODIUM 10 MG TABLET PO SCH (08:41)
[2022-03-25] MEDS: CALCIUM CARBONATE 1250MG TAB PO SCH (08:41)
[2022-03-25] MEDS: CHOLECALCIFEROL 5,000 UNITS 125 MCG TAB PO SCH (08:41)
[2022-03-25] MEDS: MULTIVITAMIN TAB PO SCH (08:41)
[2022-03-25] MEDS: dexAMETHasone 6 MG in SYRINGE 0 ML IV SCH (08:41)
[2022-03-25] MEDS: INSULIN ASPART PER UNIT SC SCH ×4 (08:49→20:12)
--- NOTE | 2022-03-25 09:36 | Orthopedic Progress Note ---
Date of Service March 25, 2022 Assessment & Plan (1) Neurogenic claudication due to lumbar spinal stenosis: Plan: This time continue physical therapy monitor ALEXANDER operatively discharge home next day or so. Admission and Anticipated Discharge Date Admission Date: March 24, 2022 Subjective Patient's back pain is controlled leg symptoms improved Physical Exam Physical Exam: Patient is ambulating halls. She is comfortable. Is good strength testing. Results & Data ([facility]) Vital Signs (Past 12 Hours) Vital Signs Temp Pulse Resp BP Pulse Ox O2 Del Method 03/25/22 07:57 36.8 C 88 16 135/73 97 Room Air 03/25/22 02:26 36.4 C L 82 16 109/61 95 Room Air 03/24/22 22:46 36.6 C 84 16 144/72 H 96 Room Air
[2022-03-25] MEDS: traMADol HCL 50 MG TABLET PO PRN ×3 (10:49→17:40)
[2022-03-25] MEDS ORDERED: IRON SUCROSE 200 MG in 0.9 % SODIUM CHLORIDE 100 ML IV ONE (15:45)
[2022-03-25] MEDS: AZELASTINE HCL 0.1% NASAL 200 SPRAYS/27,400 MCG BTL SCH (20:06)
[2022-03-25] MEDS: DOCUSATE SODIUM/SENNA 50/8.6MG TAB PO SCH (20:06)
[2022-03-25] MEDS: ALPRAZolam 0.25 MG TABLET PO SCH (20:12)
--- NOTE | 2022-03-25 20:48 | Hospitalist Progress Note ---
Date of Service March 25, 2022 Assessment & Plan (1) Neurogenic claudication due to lumbar spinal stenosis: Plan: POD #1 - s/p Lumbar decompression bilateral medial facetectomies and foraminotomies L3-L4, L4-L5 and L5-S1; posterior spinal fusion L4-L5 L5-S1 - by Dr Xavier. Doing well from ortho standpoint. Defer pain management, DVT proph, disposition to primary orthopedic team. (2) Esophageal reflux: Plan: Had mild GERD earlier today. She did take a dose of pepcid. Cont prn. If any worsening symptoms then simply schedule it. (3) Anxiety: Plan: xanax 0.25mg HS. (4) Hyperlipemia: Plan: not on meds for such at this time. (5) Hypertension: Plan: BPs starting to rise will resume losartan tomorrow am (6) Asthma: Plan: no exacerbation at this time cont albuterol prn cont advair or similar formulary equivalent (7) Type 2 diabetes mellitus: Plan: Hb a1c 6.8% to her recollection it was previously 6.2 or 6.3% cont novolog SSI BSGs should improve next 24 hours as perioperative stress resolves and effects of perioperative steroids wane at d/c simply f/u with PCP for the DM and cont dietary control (8) Acute blood loss anemia: Plan: mild-moderate in the setting of thalassemia reasonable to give 200mg of IV venofer x 1 today repeat CBC in am for stability Plan will cont to follow Admission and Anticipated Discharge Date Admission Date: March 24, 2022 Subjective pt states she is passing flatus but no stool yet no abd pain tolerating her meal we discussed her anemia and blood loss she does have h/o thalassemia at baseline back pain relatively controlled no leg pains daughter at bedside Review of Systems Review of Systems: gen - no fevers cv - no chest pain pulm - no dyspnea GI - no abd pain, nausea or emesis Physical Exam Physical Exam: gen - NAD, pleasant skin - mild pallor neck - no JVD mouth - MMM heart - RRR, s1 s2, no murmur lungs - CTA b/l abd - soft NT ND BS+ ext - trace edema, pulses 2+ b/l Results & Data Results & Data ([facility]) Vital Signs (Past 12 Hours) Vital Signs Temp Pulse Resp BP Pulse Ox O2 Del Method 03/25/22 17:07 68 169/76 H 03/25/22 15:17 146/78 H 03/25/22 14:59 36.7 C 75 16 165/77 H 98 Room Air 03/25/22 10:38 36.7 C 77 16 149/76 H 98 Room Air Laboratory Results Laboratory Results - last 24 hr 03/24/22 03/25/22 03/25/22 21:17 06:29 06:29 WBC 11.59 H RBC 4.26 Hgb 9.1 L Hct 29.3 L MCV 68.8 L MCH 21.4 L MCHC 31.1 L RDW Std Deviation 38.7 RDW Coeff of Eunice 15.9 H Plt Count 203 MPV 10.3 Immature Gran % (Auto) 0.4 Neut % (Auto) 78.1 Lymph % (Auto) 12.9 [place] % (Auto) 8.5 Eos % (Auto) 0.0 Baso % (Auto) 0.1 Neut # (Auto) 9.04 H Lymph # (Auto) 1.50 [place] # (Auto) 0.99 H Eos # (Auto) 0.00 Baso # (Auto) 0.01 Immature Gran # (Auto) 0.05 H Tear Drop Cells 1+ Ovalocytes 1+ Sodium 136 Potassium 3.7 Chloride 106 Carbon Dioxide 23 Anion Gap 7 BUN 13 Creatinine 0.69 Est Cr Clr Drug Dosing 69.6 Est GFR ( Amer) 100.8 Est GFR (Non-Af Amer) 87.0 BUN/Creatinine Ratio 18.8 Glucose 190 H POC Glucose 188 H Estimat Average Glucose Hemoglobin A1c Calcium 8.8 03/25/22 03/25/22 03/25/22 06:29 08:01 11:57 WBC RBC Hgb Hct MCV MCH MCHC RDW Std Deviation RDW Coeff of Eunice Plt Count MPV Immature Gran % (Auto) Neut % (Auto) Lymph % (Auto) [place] % (Auto) Eos % (Auto) Baso % (Auto) Neut # (Auto) Lymph # (Auto) [place] # (Auto) Eos # (Auto) Baso # (Auto) Immature Gran # (Auto) Tear Drop Cells Ovalocytes Sodium Potassium Chloride Carbon Dioxide Anion Gap BUN Creatinine Est Cr Clr Drug Dosing Est GFR ( Amer) Est GFR (Non-Af Amer) BUN/Creatinine Ratio Glucose POC Glucose 133 H 175 H Estimat Average Glucose 148 Hemoglobin A1c 6.8 H Calcium 03/25/22 03/25/22 17:04 20:10 WBC RBC Hgb Hct MCV MCH MCHC RDW Std Deviation RDW Coeff of Eunice Plt Count MPV Immature Gran % (Auto) Neut % (Auto) Lymph % (Auto) [place] % (Auto) Eos % (Auto) Baso % (Auto) Neut # (Auto) Lymph # (Auto) [place] # (Auto) Eos # (Auto) Baso # (Auto) Immature Gran # (Auto) Tear Drop Cells Ovalocytes Sodium Potassium Chloride Carbon Dioxide Anion Gap BUN Creatinine Est Cr Clr Drug Dosing Est GFR ( Amer) Est GFR (Non-Af Amer) BUN/Creatinine Ratio Glucose POC Glucose 172 H 135 H Estimat Average Glucose Hemoglobin A1c Calcium PG Care Time/CCT Total # of Minutes Spent Total Time Spent with Patient: Total time spent is greater than 50% in coordination of care (as documented) at patient's floor/unit and/or counseling patient: Coding Level of Care Code 51158 Subseq Hosp Care Lvl 2 Diagnoses Neurogenic claudication due to lumbar spinal stenosis M48.062 Esophageal reflux K21.9 Anxiety F41.9 Hyperlipemia E78.5 Hypertension I10 Asthma J45.909 Type 2 diabetes mellitus E11.9 Acute blood loss anemia D62
[2022-03-26 07:13] LABS: Hemoglobin 9.7 g/dl (12.0-16.0); Mean Corpuscular Hemoglobin 21.5 pg (25.0-34.0); Mean Corpuscular Hgb Conc 31.3 g/dL (32.0-36.0); Mean Corpuscular Volume 68.6 fL (80.0-100.0); Mean Platelet Volume 10.4 fL (9.4-12.3); Platelet Count 256 K/uL (130-400); RDW Coefficient of Variation 16.2 % (11.5-14.5); RDW Standard Deviation 39.2 fL (36.4-46.3); Red Blood Count 4.52 M/uL (3.93-5.22); White Blood Count 13.56 K/ul (4.8-10.8)
[2022-03-26] MEDS: traMADol HCL 50 MG TABLET PO PRN (07:41)
--- NOTE | 2022-03-26 08:27 | Discharge Summary ---
Date of Service March 26, 2022 Admission HPI Per Admitting Provider This is a 71-year-old female presents with chronic persistent back and leg pain. Failing course of nonoperative care she is here for surgical mention. Principal Diagnosis Lumbar spinal stenosis with neurogenic claudication Discharge Data Allergies Allergy/AdvReac Type Severity Reaction Status Date / Time ondansetron Allergy Intermediate MADE LIPS Verified 03/24/22 08:50 SWELL tomato Allergy Mild STOMACH Verified 03/24/22 08:50 ACHE broccoli Allergy Unknown STOMACH Verified 03/24/22 08:50 ACHE plum Allergy Unknown STOMACH Verified 03/24/22 08:50 ACHE cauliflower Allergy Verified 03/24/22 08:50 erythromycin base Allergy stomach Verified 03/24/22 08:50 upset meperidine Allergy Unknown Verified 03/24/22 08:50 peas Allergy Verified 03/24/22 08:50 metformin AdvReac Severe Headaches Verified 03/24/22 08:50 Rkyjbnh-STB-DeA Reductase AdvReac Intermediate Joint Verified 03/24/22 08:50 Inhibitor pain/weakness [Pvhpqjj-Fzn-Pih Reductase Inhibitor] tamsulosin AdvReac SWELLING Verified 03/24/22 08:50 terazosin AdvReac SWELLING Verified 03/24/22 08:50 Pea Allergy Mild STOMACH Uncoded 03/24/22 08:50 ACHE Consultations 03/24/22 14:32 Consult Hospitalist Routine Procedures Performed Operation Date: 03/24/22 10:05 Actual Procedures p L4-S1 Decompression and Fusion, Spinal Cord Monitoring - Deyvi Xavier DO Ordered Studies 03/24/22 10:05 FL lumbar spine 2-3V Routine Hospital Course (1) Neurogenic claudication due to lumbar spinal stenosis: Plan Patient underwent lumbar decompression fusion tolerated this well was taken to orthopedic for postoperative. Postop day 1 she was up and ambulating progressed to postop day #2. ALEXANDER drain decreasing probably. Excellent strength testing. Subsequently discharged home. Discharge orders instructions from the chart for further review. Total Time Total Time Spent Total Time Spent (In Minutes): 20 minutes Discharge Plan Discharge Items Patient Disposition: Home - Self-Care Reason For Visit: Spinal Stenosis, Lumbar Region with Neurogenic Discharge Diagnosis: Lumbar spinal stenosis with neurogenic claudication Activity: As commented below Non-emergency contact: Primary Care Provider Call non-emergency contact if: you have any medication questions Follow-up/Referrals: Corinne Tavarez MD [Primary Care Provider] - Diet: Regular Addtl Attending Provider Instructions: ACTIVITY RECOMMENDATIONS: SELF CARE INSTRUCTIONS AFTER THORACIC/LUMBAR FUSIONS 1. You may walk to your tolerance. It is good exercise for your legs and back. Expect some back and intermittent leg aches and pains. 2. You may perform "counter-top" level activities (make a sandwich, sharda with a project, etc.). 3. No bending or lifting of more than 10 pounds or back twisting of any nature (roll like a log when turning in bed). 4. You may ride in a car for 20-30 minutes at a time. No driving until after your first visit with your doctor. 5. Frequent changes of position and restricting sitting to 30 minutes at a time will help limit the amount of back spasms and stiffness you may experience. 6. You may discontinue the use of ambulatory aids (cane, crutches, etc.) once your strength and confidence allow. 7. 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 Do not take a tub bath, sit in a hot tub or go into a swimming pool until after your first recheck in the office. SPECIAL CARE INSTRUCTIONS: VERY IMPORTANT TO READ AND REVIEW A. Your surgical incision has been closed with a cosmetic suture under the skin that will dissolve in about 6 weeks. In 14 days, you can use a pair of clean scissors and cut the suture that is left outside of the skin at the ends of your incision. 1. The small skin tapes can be removed 7 days after surgery if they have not fallen off by that point. 2. You may keep the wound open to air as much as possible to promote healing after post-op day number 5 unless told otherwise by your doctor. 3. If you think the wound looks like it is becoming infected (redness or worsening drainage) and/or you are experiencing fever, chill or worsening back pain and muscle spasms, contact the office so that we may evaluate you as soon as possible. B. Complications are uncommon, but please contact us if you have any signs or symptoms of: 1. wound infection (fever higher than 102.5 degrees F, redness, separation of wound, drainage, or increasing pain from the incision) 2. blood clots in legs (pain, swelling, redness and warmth in legs) 3. urinary tract infection (fever higher than 102.5 degrees F, burning upon urination or increased frequency of urination) 4. nerve problems (inability to walk on your toes or heels, numbness, loss of bowel or bladder control) 5. any other symptoms that concern you C. Please call the office at if you have any concerns or questions about your operation or recovery. D. No smoking! Smoking drastically decreases the chance of a solid fusion. E. Do not take any anti-inflammatory medications (Indocin, Advil, Motrin, Aspirin, Naprosyn, etc.) as these may inhibit the chance of a solid fusion. Tylenol is okay to take for pain. MANAGING PAIN AFTER SPINAL SURGERY 1. Narcotic medication is intended for short-term use and will be provided for surgical pain. Surgical pain usually lasts for a period of 4-6 weeks. Narcotic medication includes Percocet, Vicodin, Darvocet, Tylenol #3 or Lortab. 2. Longer-term pain is more appropriately treated with non-narcotic medication such as Tylenol ES. 3. Muscle spasm is not appropriately treated with narcotics. Muscle relaxers such as Soma, Flexeril or Skelaxin can be used along with Tylenol ES. 4. Remember that we all live with some "aches and pains". This is not unusual or uncommon after an injury or as we get older. a. Back pain is expected and may include muscle spasms for 4 to 6 weeks after surgery. The pain should gradually improve. If the pain worsens for no apparent reason, please contact the office. b. Intermittent leg pain may also be experienced and should not be concerned about unless it worsens for no apparent reason. If so, please contact the office. 5. We will provide appropriate medication within the normal guidelines of their prescribed use. We will also be very cautious and aware of potential abuse and extended duration of patients' medication needs. a. Pain medications are for your comfort and to assist with sleep and rest so that the tissue can heal. They are not provided in order to return to normal activity and should not be used through the day. To do so or worsening pain at night can result from ongoing tissue damage and development of tolerance to the prescribed medicine. 6. Please allow 2-3 days to process refills. Prescriptions will not be mailed but must be picked up at the office. FOLLOW UP VISIT: Keep your scheduled follow-up appointment. Any questions, please call the office at . Pending Studies at Discharge: No Stand-Alone Forms: My [facility] [address], Smoking Cessation Medications and DC Order Prescriptions: New oxycodone 5 mg tablet 5 mg PO Q6H PRN (Reason: pain, severe) Qty: 30 0RF tramadol 50 mg tablet 50 mg PO Q6H PRN (Reason: pain, moderate) Qty: 30 0RF Continued calcium carbonate [Calcium 500] 500 mg calcium (1,250 mg) tablet 500 mg PO QAM montelukast 10 mg tablet 10 mg PO QAM Qty: 90 3RF Rx Instructions: TAKE 1 TABLET BY MOUTH EVERY DAY albuterol sulfate 90 mcg/actuation HFA aerosol inhaler 2 puff inhalation Q4H PRN (Reason: bronchospasm) Qty: 18 11RF fluticasone propion-salmeterol [Wixela Inhub] 250-50 mcg/dose blister with device 1 inh inhalation BID Qty: 60 11RF multivitamin Capsule 1 cap PO QAM alprazolam [Xanax] 0.5 mg tablet 0.25 mg PO HS losartan 50 mg tablet 50 mg PO HS tramadol 50 mg Tablet 25 mg PO Q6H PRN (Reason: Pain) acetaminophen 325 mg Capsule 325 mg PO Q6H PRN (Reason: Pain) cholecalciferol (vitamin D3) 125 mcg (5,000 unit) Tablet 125 mcg PO QAM magnesium carb,citrate,oxide 1 tab PO QAM oxybutynin chloride [Ditropan XL] 5 mg tablet extended release 24 hr 5 mg PO QAM azelastine 137 mcg (0.1 %) aerosol,spray 2 spray INTNAS HS Discharge Orders: Discharge Order (Routine); Ordered 03/26/22 Ordered By: Deyvi Xavier Admission Data Admit Date/Time: 03/24/22 12:18 Attending Provider: Deyvi Xavier Admit Provider: Deyvi Xavier Primary Care Provider: Corinne Tavarez Other Providers: Rahul Josue ; Ted Jaimes
[2022-03-26] MEDS: LOSARTAN POTASSIUM 50 MG TAB PO SCH ×2 (08:51→09:02)
[2022-03-26] MEDS: CALCIUM CARBONATE 1250MG TAB PO SCH (08:51)
[2022-03-26] MEDS: dexAMETHasone 6 MG in SYRINGE 0 ML IV SCH (08:51)
[2022-03-26] MEDS: MULTIVITAMIN TAB PO SCH (08:51)
[2022-03-26] MEDS: MAGNESIUM OXIDE 400 MG TAB PO SCH (08:51)
[2022-03-26] MEDS: CHOLECALCIFEROL 5,000 UNITS 125 MCG TAB PO SCH (08:51)
[2022-03-26] MEDS: MONTELUKAST SODIUM 10 MG TABLET PO SCH (08:51)
[2022-03-26] MEDS: FLUTICASONE/VILANTEROL 200/25MCG 14 PUFFS/INHALER INH SCH (08:52)
[2022-03-26] MEDS: INSULIN ASPART PER UNIT SC SCH ×2 (08:54→12:35)
--- NOTE | 2022-03-26 21:33 | Hospitalist Progress Note ---
Date of Service March 26, 2022 Assessment & Plan (1) Neurogenic claudication due to lumbar spinal stenosis: Plan: POD #2 - s/p Lumbar decompression bilateral medial facetectomies and foraminotomies L3-L4, L4-L5 and L5-S1; posterior spinal fusion L4-L5 L5-S1 - by Dr Xavier. Doing well from ortho standpoint. Chronic LLE pain from her spinal stenosis is improved/resolved - she is thankful for such. Patient to d/c home today. (2) Esophageal reflux: (3) Anxiety: Plan: xanax 0.25mg HS. (4) Hyperlipemia: Plan: not on meds for such at this time. (5) Hypertension: Plan: resume losartan today (6) Asthma: Plan: no exacerbation at this time cont home inhalers (7) Type 2 diabetes mellitus: Plan: Hb a1c 6.8% to her recollection it was previously 6.2 or 6.3% BSGs overall improving we discussed ongoing dietary control at home f/u with PCP to discuss the DM will not send home with any insulin or PO meds at this time (8) Acute blood loss anemia: Plan: mild-moderate in the setting of thalassemia s/p 200mg of IV venofer x 1 yesterday repeat CBC today acceptable Plan left hand/wrist IV infiltrate - mild, no Rx except compresses as desired and elevation ok for d/c home from medical standpoint Admission and Anticipated Discharge Date Admission Date: March 24, 2022 Subjective patient feeling well, excited about d/c home today chronic LLE pain is resolved s/p back surgery IV infiltrated yesterday during her IV venofer infusion (left hand) no pain, mild swelling only, no burning, etc +stool eating ok Review of Systems Review of Systems: cv - no cp, no orthopnea pulm - no cough, no dyspnea GI - no abd pain Physical Exam Physical Exam: gen - NAD, pleasant, looks great neck - no JVD mouth - MMM heart - RRR, s1 s2, no murmur lungs - CTA b/l abd - soft NT ND BS+ ext - trace edema, pulses 2+ b/l skin - left wrist region - mild swelling only, no warmth, no pain/tenderness Results & Data Results & Data ([facility]) Vital Signs (Past 12 Hours) Vital Signs Temp Pulse Pulse Resp BP Pulse Ox 03/26/22 10:05 36.8 C 76 75 16 149/66 H 98 Laboratory Results Laboratory Results - last 24 hr 03/24/22 03/26/22 03/26/22 09:05 06:43 08:09 WBC 13.56 H RBC 4.52 Hgb 9.7 L Hct 31.0 L MCV 68.6 L MCH 21.5 L MCHC 31.3 L RDW Std Deviation 39.2 RDW Coeff of Eunice 16.2 H Plt Count 256 MPV 10.4 POC Glucose 122 H Crossmatch See Detail 03/26/22 12:05 WBC RBC Hgb Hct MCV MCH MCHC RDW Std Deviation RDW Coeff of Eunice Plt Count MPV POC Glucose 177 H Crossmatch PG Care Time/CCT Total # of Minutes Spent Total Time Spent with Patient: Total time spent is greater than 50% in coordination of care (as documented) at patient's floor/unit and/or counseling patient: Coding Level of Care Code 56056 Subseq Hosp Care Lvl 1 Diagnoses Neurogenic claudication due to lumbar spinal stenosis M48.062 Esophageal reflux K21.9 Anxiety F41.9 Hyperlipemia E78.5 Hypertension I10 Asthma J45.909 Type 2 diabetes mellitus E11.9 Acute blood loss anemia D62
== END 2022-03-26 14:05 | disposition home or self-care (01) | DRG 454 ==
LOC: ASU 08:23 → 3E 12:18
DX: F41.9 Anxiety disorder, unspecified; K21.9 Gastro-esophageal reflux disease without esophagitis; E78.5 Hyperlipidemia, unspecified; J45.909 Unspecified asthma, uncomplicated; M85.80 Other specified disorders of bone density and structure, unspecified site; E11.9 Type 2 diabetes mellitus without complications; M48.062 Spinal stenosis, lumbar region with neurogenic claudication; I10 Essential (primary) hypertension; D56.9 Thalassemia, unspecified; D62 Acute posthemorrhagic anemia